=== PATIENT | male | born 1960 | race African-American/Black ===

== ENCOUNTER 2017-06-13 15:01 | Emergency (ER) | payer MEDICAID, OTHER ==
[2017-06-13] VITALS (9 sets, daily range): BP systolic 165–213; BP diastolic 100–155
[~2017-06-13] VITALS: Ht 177.8 cm; Wt 81.6 kg
--- NOTE | 2017-06-13 14:57 | Emergency Room Report ---
History of Present Illness General Chief Complaint: Chest Pain Source: Patient, EMS Present Illness HPI Patient presents with chest pain which began 3 hours ago. Sharp, stabbing and pleuritic 07/04, radiates to back. Paramedics called and patient given aspirin and nitro X3. No significant change with tx. EKG tachy and LAE. Patient was hypertensive. Not admitting to drug use. He states he's had a recent cardiac evaluation and was told his cholesterol is high. Started medication for that. Negative stress test and echo in 2013. When evaluated here, his blood pressure has been high. Today he was with 2 women in his apartment and he had to run down to his car without his clothes on. He started having chest pain when this was happening. No diabetes. + smoke. No family history. No fevers, weakness, headache, cough, URI, NVD, dysuria, joint pain, rashes. Allergies: Coded Allergies: No Known Allergies (Unverified , 09/25/14) Patient History Past Medical History: see triage record, old chart reviewed Social History: Reports: alcohol use, drug use - see tox, smoking Social History Narrative from home Reviewed Nursing Documentation: PMH: Agreed, PSxH: Agreed Nursing Documentation-PMH Hx Cardiac Problems: Yes Hx Hypertension: Yes Review of Systems All Other Systems: negative except mentioned in HPI Physical Exam Vital Signs Date Time Temp Pulse Resp B/P Pulse Ox O2 Delivery O2 Flow Rate FiO2 06/13/17 14:48 98.8 111 16 213/155 100 Room Air Sp02 EP Interpretation: reviewed, normal General Appearance: well appearing, no apparent distress, GCS 15 Head: normocephalic Eyes: bilateral eye PERRL, bilateral eye Scleral Injection ENT: moist mucus membranes Neck: supple Respiratory: other - gynecomastia Cardiovascular #1: regular rate, rhythm Cardiovascular #2: 2+ radial (R), 2+ radial (L) Gastrointestinal: normal inspection, normal bowel sounds, non tender, no mass, non-distended Rectal: other - hemrrhoid versus condyloma Musculoskeletal: back normal, gait/station normal, normal range of motion Neurologic: alert, oriented x3, grossly normal Psychiatric: mood/affect normal Skin: normal inspection, warm/dry Medical Decision Making Diagnostic Impression: Primary Impression: Chest pain Qualified Codes: R07.9 - Chest pain, unspecified Additional Impressions: Hypertension Qualified Codes: I10 - Essential (primary) hypertension Amphetamine abuse Renal insufficiency ER Course Patient presents with chest pain. Differential includes acute myocardial infarction, acute coronary syndrome, costochondritis, anxiety, bronchitis, pneumothorax amongst others. VS against PE. Evaluation EKG, labs and chest x- ray. Patient will be observed on clinical research monitor. He is extremely hypertensive. This will be monitored and treated if needed. EKG with LAE, NSSTTW changes. CXR no cardiopulmonary disease. Labs significant for + amphetamines and blood alcohol with renal insufficiency ( prior creat normal). HTN treated in ED with improvement. Pain also treated with improvement. Discussed with patient need for follow up with his MD with repeated labs and BP determination. Admonished to stop using drugs. Patient stable for outpatient observation and treatment. Laboratory Tests Test 06/13/17 15:05 06/13/17 16:20 White Blood Count 5.4 K/UL (4.8-10.8) Red Blood Count 4.62 M/UL (4.70-6.10) L Hemoglobin 11.3 G/DL (14.2-18.0) L Hematocrit 37.7 % (42.0-52.0) L Mean Corpuscular Volume 82 FL (80-99) Mean Corpuscular Hemoglobin 24.5 PG (27.0-31.0) L Mean Corpuscular Hemoglobin Concent 30.0 G/DL (32.0-36.0) L Red Cell Distribution Width 17.6 % (11.6-14.8) H Platelet Count 385 K/UL (150-450) Mean Platelet Volume 5.7 FL (6.5-10.1) L Neutrophils (%) (Auto) 52.2 % (45.0-75.0) Lymphocytes (%) (Auto) 32.7 % (20.0-45.0) Monocytes (%) (Auto) 10.2 % (1.0-10.0) H Eosinophils (%) (Auto) 2.9 % (0.0-3.0) Basophils (%) (Auto) 2.0 % (0.0-2.0) Prothrombin Time 9.4 SEC (9.30-11.50) Prothrombin Time INR 0.9 (0.9-1.1) PTT 26 SEC (23-33) Sodium Level 143 mEQ/L (135-145) Potassium Level 3.0 mEQ/L (3.4-4.9) L Chloride Level 96 mEQ/L (98-107) L Carbon Dioxide Level 28 mEQ/L (20-30) Anion Gap 19 (5-15) H Blood Urea Nitrogen 19 mg/dL (7-23) Creatinine 1.6 mg/dL (0.7-1.2) H Estimate Glomerular Filtration Rate 54.7 mL/min (>60) Glucose Level 92 mg/dL (74-106) Calcium Level 8.7 mg/dL (8.6-10.2) Total Bilirubin 1.1 mg/dL (0.0-1.2) Direct Bilirubin 0.3 mg/dL (0.1-0.3) Aspartate Amino Transferase (AST) 74 U/L (5-40) H Alanine Aminotransferase (ALT) 35 U/L (3-41) Alkaline Phosphatase 110 U/L (40-129) Total Creatine Kinase 244 U/L (38-174) H Troponin I < 0.30 ng/mL (<=0.30) Pro-B-Type Natriuretic Peptide 817 pg/mL (0-125) H Total Protein 8.2 g/dL (6.6-8.7) Albumin 4.4 g/dL (3.5-5.2) Globulin 3.8 g/dL Albumin/Globulin Ratio 1.1 (1.0-2.7) Serum Alcohol 243 mg/dL Urine Color Pale yellow Urine Appearance Slightly cloudy Urine pH 6 (4.5-8.0) Urine Specific [place] 1.015 (1.005-1.035) Urine Protein 3+ (NEGATIVE) H Urine Glucose (UA) Negative (NEGATIVE) Urine Ketones Negative (NEGATIVE) Urine Occult Blood 2+ (NEGATIVE) H Urine Nitrite Negative (NEGATIVE) Urine Bilirubin Negative (NEGATIVE) Urine Urobilinogen 1 MG/DL (0.0-1.0) H Urine Leukocyte Esterase Negative (NEGATIVE) Urine RBC 5-10 /HPF (0 - 0) H Urine WBC 0-2 /HPF (0 - 0) Urine Squamous Epithelial Cells Occasional /LPF Urine Bacteria Few /HPF (NONE) Urine Opiates Screen Negative (NEGATIVE) Urine Barbiturates Screen Negative (NEGATIVE) Phencyclidine (PCP) Screen Negative (NEGATIVE) Urine Amphetamines Screen Positive (NEGATIVE) H Urine Benzodiazepines Screen Negative (NEGATIVE) Urine Cocaine Screen Negative (NEGATIVE) Urine Marijuana (THC) Screen Positive (NEGATIVE) H EKG Diagnostic Results Rate: tachycardiac ST Segments: no acute changes Rhythm Strip Diag. Results EP Interpretation: yes Rhythm: no PVC's, no ectopy, other - Sinus tachycardia Chest X-Ray Diagnostic Results Chest X-Ray Diagnostic Results : Chest X-Ray Ordered: Yes # of Views/Limited/Complete: 1 View Indication: Chest Pain EP Interpretation: Yes Interpretation: no consolidation, no effusion, no pneumothorax, no acute cardiopulmonary disease Impression: No acute disease Interpreting ER Provider: Electronically signed by Ronald Schwab MD Last Vital Signs Date Time Temp Pulse Resp B/P Pulse Ox O2 Delivery O2 Flow Rate FiO2 06/13/17 20:00 98.8 91 25 165/112 97 Room Air Status: improved Disposition: HOME, SELF-CARE Condition: Improved Scripts Clonidine Hcl* (CATAPRES*) 0.2 Mg Tablet 0.2 MG ORAL Q8HR, #60 TAB Prov: Ronald Schwab M.D. 06/13/17 Ronald Schwab M.D. Jun 13, 2017 14:57
[~2017-06-13 15:01] MED LIST: LISINOPRIL5 MG ORAL; NKM
[2017-06-13 15:25] LABS: EOSINOPHILS % (AUTO) 2.9 % (0.0-3.0); LYMPHOCYTES % (AUTO) 32.7 % (20.0-45.0); MEAN CORPUSCULAR HEMOGLOBIN 24.5 PG (27.0-31.0); MEAN CORPUSCULAR VOLUME 82 FL (80-99); MEAN PLATELET VOLUME 5.7 FL (6.5-10.1); MONOCYTES % (AUTO) 10.2 % (1.0-10.0); NEUTROPHILS % (AUTO) 52.2 % (45.0-75.0); PLATELET COUNT 385 K/UL (150-450); RED BLOOD COUNT 4.62 M/UL (4.70-6.10); RED CELL DISTRIBUTION WIDTH 17.6 % (11.6-14.8); WHITE BLOOD COUNT 5.4 K/UL (4.8-10.8)
[2017-06-13 15:39] LABS: INR 0.9 (0.9-1.1); PROTHROMBIN TIME 9.4 SEC (9.30-11.50)
[2017-06-13 15:52] LABS: ALANINE AMINOTRANSFERASE 35 U/L (3-41); ALBUMIN/GLOBULIN RATIO 1.1 (1.0-2.7); ANION GAP 19 (5-15); ASPARTATE AMINO TRANSFERASE 74 U/L (5-40); CALCIUM 8.7 mg/dL (8.6-10.2); CARBON DIOXIDE 28 mEQ/L (20-30); CHLORIDE 96 mEQ/L (98-107); CREATININE 1.6 mg/dL (0.7-1.2); GLOMERULAR FILTRATION RATE 54.7 mL/min (>60); HEMOLYSIS 2; SODIUM 143 mEQ/L (135-145); TOTAL PROTEIN 8.2 g/dL (6.6-8.7)
[2017-06-13 16:22] LABS: BILIRUBIN,DIRECT 0.3 mg/dL (0.1-0.3)
[2017-06-13 16:24] LABS: TROPONIN I < 0.30 ng/mL (<=0.30)
[2017-06-13 16:38] LABS: APPEARANCE,URINE SLIGHTLY CLOUDY; KETONES,URINE NEGATIVE (NEGATIVE); LEUKOCYTE ESTERASE ,URINE NEGATIVE (NEGATIVE); NITRITE,URINE NEGATIVE (NEGATIVE); PH,URINE 6 (4.5-8.0); PROTEIN,URINE 3+ (NEGATIVE); UROBILINOGEN,URINE 1 MG/DL (0.0-1.0)
[2017-06-13 16:53] LABS: SQUAMOUS EPITHELIAL CELL,UR OCCASIONAL /LPF (NONE/OCC); WBC,URINE 0-2 /HPF (0 - 0)
[2017-06-13 16:54] LABS: BACTERIA,URINE FEW /HPF
[2017-06-13] MEDS: Metoprolol 5mg/5ml Inj IVP SCH ×3 (17:37→17:57)
[2017-06-13] MEDS ORDERED: cloNIDine 0.2mg Tab ORAL ONE (18:30)
[2017-06-13] MEDS ORDERED: CATAPRES0.2 MG ORAL (19:49)
--- NOTE | 2017-06-14 11:36 | Diagnostic Imaging Report ---
Indication: Chest pain Comparison: September 25, 2014 A single view chest radiograph was obtained. Findings: No definite infiltrate or pulmonary vascular congestion identified. The heart is enlarged. The aorta is mildly enlarged consistent with atherosclerotic vascular disease. The bones are unremarkable. Impression: No acute disease
--- NOTE | 2017-06-17 21:23 | Cardiology Report ---
APPROVED REPORT EKG Measurement Heart [id number] 140P61 [id number] Sinus tachycardia Biatrial enlargement Left ventricular hypertrophy Nonspecific T wave abnormality Abnormal ECG
== END 2017-06-13 20:02 | disposition home or self-care (01) ==
LOC: EDBD 15:01 → EMR 15:33
DX: R07.9 Chest pain, unspecified (principal); I10 Essential (primary) hypertension; F15.10 Other stimulant abuse, uncomplicated; N28.9 Disorder of kidney and ureter, unspecified; F17.200 Nicotine dependence, unspecified, uncomplicated
CPT/HCPCS: 36415; 71010; 80053; 80300; 80329; 81003; 82248; 82550; 83880; 84484; 85025; 85610; 85730; 93005; 96374; 96375; 99284; J0360

== ENCOUNTER 2017-06-16 19:03 | Emergency (ER) | payer OTHER ==
[~2017-06-16] VITALS: Ht 180.3 cm; Wt 79.4 kg
[~2017-06-16 19:03] MED LIST changes: +CATAPRES0.2 MG ORAL
[2017-06-16] MEDS ORDERED: LORazepam Inj 2mg/ml 1ml IV ONE (19:15)
--- NOTE | 2017-06-16 19:24 | Emergency Room Report ---
History of Present Illness General Chief Complaint: Seizure Source: Patient, EMS Present Illness HPI Patient's 57-year-old male who presented after increased generalized seizure. The patient reports having a prior seizure disorder. Patient had prior use of alcohol as well as multiple substances. Patient denied any fevers he denies a locations of pain currently patient was noted to have some tongue abrasion. Patient is medications for his blood pressure.Patient cannot recall his prior medications. He states that he takes medication for hypertension. He he reports using multiple substances earlier in the day Allergies: Coded Allergies: No Known Allergies (Unverified , 09/25/14) Patient History Reviewed Nursing Documentation: PMH: Agreed, PSxH: Agreed Nursing Documentation-PMH Hx Hypertension: Yes Hx Cancer: No Hx Gastrointestinal Problems: No History Of Psychiatric Problem: Yes - Substance/alcohol abuse Hx Neurological Problems: No Hx Seizures: Yes Review of Systems All Other Systems: negative except mentioned in HPI Physical Exam Vital Signs Date Time Temp Pulse Resp B/P (MAP) Pulse Ox O2 Delivery O2 Flow Rate FiO2 06/16/17 18:57 98.4 125 22 147/88 98 Room Air Sp02 EP Interpretation: reviewed, normal General Appearance: normal inspection, well appearing, no apparent distress, alert, GCS 15, non-toxic Head: atraumatic ENT: normal ENT inspection, hearing grossly normal, normal voice Neck: normal inspection, full range of motion, supple, no bony tend Respiratory: normal inspection, lungs clear, normal breath sounds, no respiratory distress, no retraction, no wheezing Cardiovascular #1: regular rate, rhythm, no edema Gastrointestinal: normal inspection, normal bowel sounds, non tender, soft, no guarding, no hernia Genitourinary: no CVA tenderness Musculoskeletal: normal inspection, back normal, normal range of motion Neurologic: normal inspection, alert, oriented x3, responsive, geospatial developer III-XII nml as tested, motor strength/tone normal, speech normal Psychiatric: normal inspection, judgement/insight normal, mood/affect normal Skin: normal inspection, normal color, no rash Medical Decision Making Diagnostic Impression: Primary Impression: Epileptic seizure, generalized Additional Impressions: Hypertension Renal insufficiency Polysubstance abuse ER Course Patient presented for seizure. Differential diagnosis included substance abuse, cysticercosis, electrolyte abnormality, mass lesion, or cranial hemorrhage. Because of complexity of patient's case laboratory testing studies were ordered.The patient was given IV Ativan. Laboratory testing was notable for elevation of his BUN/creatinine consistent the patient's previous renal insufficiency. This is likely exacerbated by recent substance use. The patient was noted to have improvement in his mental status. Patient stated he wanted to go home. Patient was advised not to drive a motor vehicle or operate heavy machinery.The patient is advised to follow up with primary care doctor in 1-2 days. Patient is advised to return if any worsening condition or if any changes in status that are concerning. Labs Test 06/16/17 18:20 06/16/17 19:25 Urine Opiates Screen Negative (NEGATIVE) Urine Barbiturates Screen Negative (NEGATIVE) Phencyclidine (PCP) Screen Negative (NEGATIVE) Urine Amphetamines Screen Positive (NEGATIVE) Urine Benzodiazepines Screen Positive (NEGATIVE) Urine Cocaine Screen Negative (NEGATIVE) Urine Marijuana (THC) Screen Positive (NEGATIVE) White Blood Count 11.4 K/UL (4.8-10.8) Red Blood Count 4.80 M/UL (4.70-6.10) Hemoglobin 12.7 G/DL (14.2-18.0) Hematocrit 38.4 % (42.0-52.0) Mean Corpuscular Volume 80 FL (80-99) Mean Corpuscular Hemoglobin 26.4 PG (27.0-31.0) Mean Corpuscular Hemoglobin Concent 33.0 G/DL (32.0-36.0) Red Cell Distribution Width 18.1 % (11.6-14.8) Platelet Count 275 K/UL (150-450) Mean Platelet Volume 6.6 FL (6.5-10.1) Neutrophils (%) (Auto) % (45.0-75.0) Lymphocytes (%) (Auto) % (20.0-45.0) Monocytes (%) (Auto) % (1.0-10.0) Eosinophils (%) (Auto) % (0.0-3.0) Basophils (%) (Auto) % (0.0-2.0) Differential Total Cells Counted 100 Neutrophils % (Manual) 75 % (45-75) Lymphocytes % (Manual) 18 % (20-45) Monocytes % (Manual) 5 % (1-10) Eosinophils % (Manual) 0 % (0-3) Basophils % (Manual) 0 % (0-2) Band Neutrophils 2 % (0-8) Platelet Estimate Adequate Platelet Morphology Normal Hypochromasia 1+ Anisocytosis 1+ Sodium Level 131 mEQ/L (135-145) Potassium Level 3.4 mEQ/L (3.4-4.9) Chloride Level 83 mEQ/L (98-107) Carbon Dioxide Level 27 mEQ/L (20-30) Anion Gap 21 (5-15) Blood Urea Nitrogen 21 mg/dL (7-23) Creatinine 2.1 mg/dL (0.7-1.2) Estimat Glomerular Filtration Rate 40.0 mL/min (>60) Glucose Level 146 mg/dL (74-106) Calcium Level 9.7 mg/dL (8.6-10.2) Total Bilirubin 2.6 mg/dL (0.0-1.2) Direct Bilirubin 0.4 mg/dL (0.1-0.3) Aspartate Amino Transf (AST/SGOT) 52 U/L (5-40) Alanine Aminotransferase (ALT/SGPT) 27 U/L (3-41) Alkaline Phosphatase 93 U/L (40-129) Total Protein 9.1 g/dL (6.6-8.7) Albumin 4.2 g/dL (3.5-5.2) Globulin 4.9 g/dL Albumin/Globulin Ratio 0.8 (1.0-2.7) Phenytoin (Dilantin) Level < 0.8 ug/mL (10-20) EKG Diagnostic Results Rate: tachycardiac Rhythm: NSR ST Segments: no acute changes ASA given to the pt in ED: No Rhythm Strip Diag. Results EP Interpretation: yes Rhythm: NSR, no PVC's, no ectopy Last Vital Signs Date Time Temp Pulse Resp B/P (MAP) Pulse Ox O2 Delivery O2 Flow Rate FiO2 06/16/17 18:57 98.4 125 22 147/88 98 Room Air Status: improved Disposition: HOME, SELF-CARE Condition: Stable KenjiLon Jun 16, 2017 19:24
[2017-06-16 19:37] LABS: MEAN CORPUSCULAR HEMOGLOBIN 26.4 PG (27.0-31.0); MEAN CORPUSCULAR VOLUME 80 FL (80-99); MEAN PLATELET VOLUME 6.6 FL (6.5-10.1); PLATELET COUNT 275 K/UL (150-450); RED CELL DISTRIBUTION WIDTH 18.1 % (11.6-14.8); WHITE BLOOD COUNT 11.4 K/UL (4.8-10.8)
[2017-06-16 19:53] LABS: ALANINE AMINOTRANSFERASE 27 U/L (3-41); ALBUMIN/GLOBULIN RATIO 0.8 (1.0-2.7); ANION GAP 21 (5-15); ASPARTATE AMINO TRANSFERASE 52 U/L (5-40); CALCIUM 9.7 mg/dL (8.6-10.2); CARBON DIOXIDE 27 mEQ/L (20-30); CHLORIDE 83 mEQ/L (98-107); CREATININE 2.1 mg/dL (0.7-1.2); HEMOLYSIS 138; POTASSIUM 3.4 mEQ/L (3.4-4.9); SODIUM 131 mEQ/L (135-145); TOTAL PROTEIN 9.1 g/dL (6.6-8.7)
[2017-06-16 20:14] LABS: BILIRUBIN,DIRECT 0.4 mg/dL (0.1-0.3)
[2017-06-16 20:25] VITALS: BP 162/109
[2017-06-16 21:13] VITALS: BP 167/113
[2017-06-16 21:41] VITALS: BP 184/103
[2017-06-16 21:47] VITALS: BP 184/103
[2017-06-16 21:48] LABS: ANISOCYTOSIS 1+; BAND NEUTROPHILS % (MANUAL) 2 % (0-8); BASOPHILS % (MANUAL) 0 % (0-2); EOSINOPHILS % (MANUAL) 0 % (0-3); HYPOCHROMASIA 1+; LYMPHOCYTES % (MANUAL) 18 % (20-45); NEUTROPHILS % (MANUAL) 75 % (45-75); PLATELET ESTIMATE ADEQUATE; PLATELET MORPHOLOGY NORMAL; TOTAL CELLS COUNTED 100
== END 2017-06-16 21:47 | disposition home or self-care (01) ==
LOC: EDBD 19:03 → EMR 20:33
DX: I10 Essential (primary) hypertension (principal); G40.909 Epilepsy, unspecified, not intractable, without status epilepticus; S00.512A Abrasion of oral cavity, initial encounter; X58.XXXA Exposure to other specified factors, initial encounter; Y92.9 Unspecified place or not applicable
CPT/HCPCS: 36415; 80053; 80185; 80300; 82248; 85007; 85025; 96374; 99284

== ENCOUNTER 2018-03-08 20:56 | Emergency (ER) | payer OTHER ==
[~2018-03-08] VITALS: Ht 175.3 cm; Wt 86.2 kg
[2018-03-08 21:05] VITALS: BP 192/101
--- NOTE | 2018-03-08 21:08 | Emergency Room Report ---
History of Present Illness General Chief Complaint: Chest Pain Source: Patient Present Illness HPI Is a 58-year-old male with a history high blood pressure. Also history of drug abuse. Patient presents with chief complaint of chest pain. His been ongoing for last 3 days. Constant in nature. No radiation. Pain localized epigastric area. Patient described pain is 9 out of 10. Nothing made it better. Nothing made it worse. He called 911 because of continual pain. EMS gave him nitroglycerin and aspirin without any relief. Patient admits to being alcoholic and has been drinking heavily because of his birthday. He also admit to using methamphetamine. Initially he denied it. He is not taking his medication for the last 2 months. Nothing made it better. Nothing made it worse. Allergies: Coded Allergies: No Known Allergies (Unverified , 09/25/14) Patient History Past Medical History: see triage record, old chart reviewed, HTN Past Surgical History: other Pertinent Family History: none Social History: Reports: alcohol use, drug use Immunizations: other Reviewed Nursing Documentation: PMH: Agreed; PSxH: Agreed Nursing Documentation-PMH Past Medical History: No History, Except For Hx Cardiac Problems: Yes Hx Hypertension: Yes Hx Cancer: No Hx Gastrointestinal Problems: No Hx Neurological Problems: No Hx Seizures: Yes Review of Systems Eye: Denies: eye pain, blurred vision ENT: Denies: ear pain, nose congestion, throat swelling Respiratory: Denies: cough, shortness of breath Cardiovascular: Reports: chest pain; Denies: palpitations Gastrointestinal: Denies: abdominal pain, diarrhea, nausea, vomiting Musculoskeletal: Denies: back pain, joint pain Skin: Denies: rash Neurological: Denies: headache, numbness Endocrine: Denies: increased thirst, increased urine Hematologic/Lymphatic: Denies: easy bruising All Other Systems: negative except mentioned in HPI Physical Exam Vital Signs Date Time Temp Pulse Resp B/P (MAP) Pulse Ox O2 Delivery O2 Flow Rate FiO2 03/08/18 20:50 118 16 202/147 97 Room Air vitals with high blood pressure and tachycardia Sp02 EP Interpretation: reviewed, normal General Appearance: well appearing, no apparent distress, alert Head: normocephalic, atraumatic Eyes: bilateral eye PERRL, bilateral eye EOMI ENT: hearing grossly normal, normal pharynx Neck: full range of motion, supple, no meningismus Respiratory: chest non-tender, lungs clear, normal breath sounds Cardiovascular #1: regular rate, rhythm, no murmur Gastrointestinal: normal bowel sounds, non tender, no mass, no organomegaly, no bruit, non-distended Musculoskeletal: back normal, gait/station normal, normal range of motion Psychiatric: mood/affect normal Skin: warm/dry Medical Decision Making Diagnostic Impression: Primary Impression: ACS (acute coronary syndrome) Additional Impressions: Polysubstance abuse Alcohol intoxication Qualified Codes: F10.920 - Alcohol use, unspecified with intoxication, uncomplicated Proteinuria Qualified Codes: R80.9 - Proteinuria, unspecified Cardiomyopathy Qualified Codes: I42.9 - Cardiomyopathy, unspecified Hypertensive urgency ER Course Patient presents with chest pain and uncontrolled hypertension. His BNP is elevated but he show no evidence of fluid overloaded. Most likely a cardiomyopathy from his alcohol and drug abuse. Troponin is intermediate. He received aspirin and nitroglycerin by EMS. I gave beta jennifer here. Blood pressure better controlled with medication. I discussed the case with Dr. Salinas excepted patient for transfer to [facility]. Laboratory Tests Test 03/08/18 21:05 White Blood Count 5.8 K/UL (4.8-10.8) Red Blood Count 4.91 M/UL (4.70-6.10) Hemoglobin 14.9 G/DL (14.2-18.0) Hematocrit 45.6 % (42.0-52.0) Mean Corpuscular Volume 93 FL (80-99) Mean Corpuscular Hemoglobin 30.3 PG (27.0-31.0) Mean Corpuscular Hemoglobin Concent 32.6 G/DL (32.0-36.0) Red Cell Distribution Width 13.6 % (11.6-14.8) Platelet Count 262 K/UL (150-450) Mean Platelet Volume 5.9 FL (6.5-10.1) L Neutrophils (%) (Auto) 65.6 % (45.0-75.0) Lymphocytes (%) (Auto) 24.1 % (20.0-45.0) Monocytes (%) (Auto) 7.2 % (1.0-10.0) Eosinophils (%) (Auto) 0.9 % (0.0-3.0) Basophils (%) (Auto) 2.2 % (0.0-2.0) H Urine Color Yellow Urine Appearance Clear Urine pH 6.5 (4.5-8.0) Urine Specific [place] 1.015 (1.005-1.035) Urine Protein 4+ (NEGATIVE) H Urine Glucose (UA) Negative (NEGATIVE) Urine Ketones 1+ (NEGATIVE) H Urine Occult Blood 4+ (NEGATIVE) H Urine Nitrite Negative (NEGATIVE) Urine Bilirubin Negative (NEGATIVE) Urine Urobilinogen 4 MG/DL (0.0-1.0) H Urine Leukocyte Esterase Negative (NEGATIVE) Urine RBC 5-10 /HPF (0 - 0) H Urine WBC 2-4 /HPF (0 - 0) Urine Squamous Epithelial Cells None /LPF (NONE/OCC) Urine Bacteria Few /HPF (NONE) Sodium Level 141 MMOL/L (136-145) Potassium Level 5.5 MMOL/L (3.5-5.1) H Chloride Level 98 MMOL/L (98-107) Carbon Dioxide Level 28 MMOL/L (21-32) Anion Gap 15 mmol/L (5-15) Blood Urea Nitrogen 21 mg/dL (7-18) H Creatinine 1.4 MG/DL (0.55-1.30) H Estimat Glomerular Filtration Rate > 60 mL/min (>60) Glucose Level 125 MG/DL (74-106) H Calcium Level 8.1 MG/DL (8.5-10.1) L Total Bilirubin 1.6 MG/DL (0.2-1.0) H Direct Bilirubin 0.2 MG/DL (0.0-0.3) Aspartate Amino Transf (AST/SGOT) 129 U/L (15-37) H Alanine Aminotransferase (ALT/SGPT) 80 U/L (12-78) H Alkaline Phosphatase 108 U/L (46-116) Total Creatine Kinase 377 U/L (26-308) H Creatine Kinase MB 3.8 NG/ML (0.0-3.6) H Creatine Kinase MB Relative Index 1.0 Troponin I 0.245 ng/mL (0.000-0.056) Pro-B-Type Natriuretic Peptide 1134 pg/mL (0-125) H Total Protein 9.3 G/DL (6.4-8.2) H Albumin 3.7 G/DL (3.4-5.0) Globulin 5.6 g/dL Albumin/Globulin Ratio 0.7 (1.0-2.7) L Lipase 305 U/L (73-393) Urine Opiates Screen Negative (NEGATIVE) Urine Barbiturates Screen Negative (NEGATIVE) Phencyclidine (PCP) Screen Negative (NEGATIVE) Urine Amphetamines Screen Positive (NEGATIVE) H Urine Benzodiazepines Screen Positive (NEGATIVE) H Urine Cocaine Screen Negative (NEGATIVE) Urine Marijuana (THC) Screen Positive (NEGATIVE) H Lab Results Impression abscess with elevated troponin EKG Diagnostic Results Rate: normal Rhythm: NSR ST Segments: other - NSST changes. LVH ASA given to the pt in ED: No - by EMS Rhythm Strip Diag. Results Rhythm Strip Time: 21:07 EP Interpretation: yes Rate: 100 Rhythm: NSR, no PVC's, no ectopy Chest X-Ray Diagnostic Results Chest X-Ray Diagnostic Results : Chest X-Ray Ordered: Yes # of Views/Limited/Complete: 1 View Indication: Chest Pain EP Interpretation: Yes Interpretation: no consolidation, no effusion, no pneumothorax, other - cardiomegaly Impression: No acute disease - cardiomegaly Electronically Signed by: Vahe Roberts MD Last Vital Signs Date Time Temp Pulse Resp B/P (MAP) Pulse Ox O2 Delivery O2 Flow Rate FiO2 03/08/18 20:50 118 16 202/147 97 Room Air Status: improved Disposition: [facility]FER [facility] Condition: Stable VAHE ROBERTS M.D. March 08, 2018 21:08
[2018-03-08] MEDS ORDERED: Pantoprazole Inj IVP ONE (21:15)
[2018-03-08 21:25] LABS: APPEARANCE,URINE CLEAR; BILIRUBIN, URINE NEGATIVE (NEGATIVE); GLUCOSE, URINE (UA) NEGATIVE (NEGATIVE); KETONES,URINE 1+ (NEGATIVE); LEUKOCYTE ESTERASE ,URINE NEGATIVE (NEGATIVE); NITRITE,URINE NEGATIVE (NEGATIVE); PH,URINE 6.5 (4.5-8.0); PROTEIN,URINE 4+ (NEGATIVE); UROBILINOGEN,URINE 4 MG/DL (0.0-1.0)
[2018-03-08 21:26] LABS: COLOR,URINE YELLOW
[2018-03-08 21:57] LABS: ANION GAP 15 mmol/L (5-15); BLOOD UREA NITROGEN 21 mg/dL (7-18); CALCIUM 8.1 MG/DL (8.5-10.1); CARBON DIOXIDE 28 MMOL/L (21-32); CHLORIDE 98 MMOL/L (98-107); CREATININE 1.4 MG/DL (0.55-1.30); POTASSIUM 5.5 MMOL/L (3.5-5.1); SODIUM 141 MMOL/L (136-145)
[2018-03-08 22:01] LABS: BASOPHILS % (AUTO) 2.2 % (0.0-2.0); EOSINOPHILS % (AUTO) 0.9 % (0.0-3.0); HEMATOCRIT 45.6 % (42.0-52.0); HEMOGLOBIN 14.9 G/DL (14.2-18.0); LYMPHOCYTES % (AUTO) 24.1 % (20.0-45.0); MEAN CORPUSCULAR VOLUME 93 FL (80-99); MONOCYTES % (AUTO) 7.2 % (1.0-10.0); NEUTROPHILS % (AUTO) 65.6 % (45.0-75.0); PLATELET COUNT 262 K/UL (150-450); RED BLOOD COUNT 4.91 M/UL (4.70-6.10); RED CELL DISTRIBUTION WIDTH 13.6 % (11.6-14.8); WHITE BLOOD COUNT 5.8 K/UL (4.8-10.8)
[2018-03-08 22:05] VITALS: BP 187/125
[2018-03-08 22:11] LABS: ALANINE AMINOTRANSFERASE 80 U/L (12-78); ALBUMIN 3.7 G/DL (3.4-5.0); ALBUMIN/GLOBULIN RATIO 0.7 (1.0-2.7); ALKALINE PHOSPHATASE 108 U/L (46-116); ASPARTATE AMINO TRANSFERASE 129 U/L (15-37); BILIRUBIN,TOTAL 1.6 MG/DL (0.2-1.0); CKMB 3.8 NG/ML (0.0-3.6); CREATINE KINASE 377 U/L (26-308)
[2018-03-08 22:12] LABS: BILIRUBIN,DIRECT 0.2 MG/DL (0.0-0.3)
[2018-03-08] MEDS ORDERED: Enoxaparin 80mg Inj SUBQ ONE (22:15)
[2018-03-08] MEDS ORDERED: Metoprolol Tartrate 50mg tab ORAL ONE (22:15)
[2018-03-08] MEDS ORDERED: Metoprolol 5mg/5ml Inj IVP ONE ×2 (22:15→23:00)
[2018-03-08 23:05] VITALS: BP 168/113
[2018-03-09] VITALS: BP 141/88
[2018-03-09 00:46] VITALS: BP 141/88
--- NOTE | 2018-03-09 11:41 | Diagnostic Imaging Report ---
Indication: Chest pain Technique: One view of the chest Comparison: 06/13/2017 Findings: The heart is borderline enlarged. The lungs and pleural spaces are clear. No significant interim change Impression: No acute process
--- NOTE | 2018-03-09 16:33 | Cardiology Report ---
APPROVED REPORT EKG Measurement Heart [id number] 140P69 [id number] Sinus tachycardia Minimal voltage criteria for LVH, may be normal variant Borderline ECG
== END 2018-03-09 00:46 | disposition short-term general hospital (02) ==
LOC: EDBD 20:56 → EMR 21:12
DX: I24.9 Acute ischemic heart disease, unspecified (principal); F19.10 Other psychoactive substance abuse, uncomplicated; F10.129 Alcohol abuse with intoxication, unspecified; I16.0 Hypertensive urgency; R80.9 Proteinuria, unspecified
CPT/HCPCS: 36415; 71045; 80053; 80307; 81003; 82248; 82550; 82553; 83690; 83880; 84484; 85025; 93005; 99285; C9113; J0360; J1650

== ENCOUNTER 2019-04-01 18:53 | Emergency (ER) | payer OTHER ==
[~2019-04-01] VITALS: Ht 175.3 cm; Wt 77.1 kg
[2019-04-01 19:40] VITALS: BP 167/128
--- NOTE | 2019-04-01 19:48 | NUR ---
ED Nurse Note: Patient BIBA from home due to chest pain. Per patient he drank 1000mL of vodka today. AAO x4, patient's HR 123 other VSS at this time. Skin is dry, warm to touch, maria luz continue to monitor.
--- NOTE | 2019-04-01 19:48 | Diagnostic Imaging Report ---
History: PAIN Exam: XR CXR 1 VIEW Comparison: 03/08/2018 FINDINGS: There is again appearance of suggested right-sided pulmonary nodule measuring around 1.2 cm projecting over the level of the anterior third rib. The lungs otherwise appear clear. The cardiac silhouette is again upper limits for technique. The visualized osseous structures appear within limits. IMPRESSION: There is again appearance of suggested right-sided pulmonary nodule measuring around 1.2 cm projecting over the level of the anterior third rib. May further characterized with follow-up nonemergent chest CT. The lungs otherwise appear clear.
[2019-04-01 19:50] LABS: BASOPHILS % (AUTO) 2.3 % (0.0-2.0); EOSINOPHILS % (AUTO) 2.2 % (0.0-3.0); HEMATOCRIT 43.6 % (42.0-52.0); HEMOGLOBIN 14.7 G/DL (14.2-18.0); LYMPHOCYTES % (AUTO) 34.7 % (20.0-45.0); MEAN CORPUSCULAR VOLUME 91 FL (80-99); MONOCYTES % (AUTO) 9.5 % (1.0-10.0); NEUTROPHILS % (AUTO) 51.3 % (45.0-75.0); PLATELET COUNT 214 K/UL (150-450); RED BLOOD COUNT 4.81 M/UL (4.70-6.10); RED CELL DISTRIBUTION WIDTH 12.6 % (11.6-14.8); WHITE BLOOD COUNT 4.7 K/UL (4.8-10.8)
--- NOTE | 2019-04-01 19:51 | NUR ---
ED Nurse Note: Pt went down for CT
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
[2019-04-01 20:10] LABS: ANION GAP 15 mmol/L (5-15); BLOOD UREA NITROGEN 25 mg/dL (7-18); CALCIUM 8.9 MG/DL (8.5-10.1); CARBON DIOXIDE 27 MMOL/L (21-32); CHLORIDE 97 MMOL/L (98-107); CREATININE 1.7 MG/DL (0.55-1.30); POTASSIUM 3.5 MMOL/L (3.5-5.1); SODIUM 139 MMOL/L (136-145)
--- NOTE | 2019-04-01 20:10 | NUR ---
ED Nurse Note: Patient ia back from CT
--- NOTE | 2019-04-01 20:11 | Diagnostic Imaging Report ---
History: TRAUMA Exam: CT HEAD Without Contrast Technique more: CTDI is 70.38 mGy and DLP is 1478 mGy-cm. Technique more: One or more of the following dose reduction techniques were used: automated exposure control, adjustment of the mA and/or kV according to patient size, use of iterative reconstruction technique. Comparison: None available FINDINGS: No intracranial hemorrhage, mass effect or calvarial fracture. The ventricles are within limits and midline. Patchy white matter low attenuation may represent chronic small vessel ischemic change. Visualized paranasal sinuses, mastoids and orbits appear within limits. IMPRESSION: No intracranial hemorrhage, mass effect or calvarial fracture. Patchy white matter low attenuation may represent chronic small vessel ischemic change.
[2019-04-01 20:25] LABS: ALANINE AMINOTRANSFERASE 88 U/L (12-78); ALBUMIN 4.2 G/DL (3.4-5.0); ALBUMIN/GLOBULIN RATIO 0.8 (1.0-2.7); ALKALINE PHOSPHATASE 124 U/L (46-116); ASPARTATE AMINO TRANSFERASE 212 U/L (15-37); BILIRUBIN,TOTAL 1.7 MG/DL (0.2-1.0); CREATINE KINASE 137 U/L (26-308)
--- NOTE | 2019-04-01 20:25 | Diagnostic Imaging Report ---
History: TRAUMA Exam: CT CHEST Without Contrast Technique more: CTDI is 12.13 mGy and DLP is 874 mGy-cm. Technique more: One or more of the following dose reduction techniques were used: automated exposure control, adjustment of the mA and/or kV according to patient size, use of iterative reconstruction technique. Comparison: FINDINGS: Thoracic aorta appears within limits on noncontrast imaging. Coronary calcification noted. No pericardial or pleural effusion. The central airways are patent. Platelike areas of scar atelectasis at the right middle lobe and lingula. No pneumothorax. 1.5 cm noncalcified pulmonary nodule right upper lobe. No fracture identified. IMPRESSION: No evidence of acute traumatic injury on noncontrast imaging. 1.5 cm noncalcified pulmonary nodule right upper lobe. Requires follow- up per Fleischner Society criteria. Exam: CT ABDOMEN + PELVIS Without Contrast Technique more: CTDI is 12.13 mGy and DLP is 874 mGy-cm. Technique more: One or more of the following dose reduction techniques were used: automated exposure control, adjustment of the mA and/or kV according to patient size, use of iterative reconstruction technique. Comparison: FINDINGS: Hepatic steatosis. The gallbladder is distended, clinical correlate. Other abdominal solid organs and abdominal aorta appear within limits on noncontrast imaging. No bowel dilation or free air. No free fluid. No acute fracture identified. IMPRESSION: No evidence of acute traumatic injury on noncontrast imaging. Hepatic steatosis. The gallbladder is distended, clinical correlate.
[2019-04-01 20:28] LABS: BILIRUBIN,DIRECT 0.5 MG/DL (0.0-0.3)
[2019-04-01 21:20] VITALS: BP 175/125
[2019-04-01 21:30] LABS: APPEARANCE,URINE CLEAR; BILIRUBIN, URINE NEGATIVE (NEGATIVE); GLUCOSE, URINE (UA) NEGATIVE (NEGATIVE); KETONES,URINE NEGATIVE (NEGATIVE); LEUKOCYTE ESTERASE ,URINE NEGATIVE (NEGATIVE); NITRITE,URINE NEGATIVE (NEGATIVE); PH,URINE 6 (4.5-8.0); PROTEIN,URINE 3+ (NEGATIVE); UROBILINOGEN,URINE 1 MG/DL (0.0-1.0)
[2019-04-01 21:31] LABS: COLOR,URINE YELLOW
--- NOTE | 2019-04-01 22:17 | NUR ---
ED Nurse Note: Patient' BP 176/115 Kenji Castle notifyed.
[2019-04-01 23:51] VITALS: BP 135/91
[2019-04-02] MEDS ORDERED: LORazepam Inj 2mg/ml 1ml IV ONE
[2019-04-02 00:48] VITALS: BP 143/88
--- NOTE | 2019-04-02 00:54 | NUR ---
ED Nurse Note: Patient was medicated, is in the bed sleeping, AAO x4, no acute disstress noticed.
[2019-04-02 01:51] VITALS: BP 150/80
--- NOTE | 2019-04-02 01:54 | NUR ---
ED Nurse Note: Pt cleared by health care Provider for discharge. DC instructions/prescription was given and explained to pt and verbalized understanding of teachings. All medical deviecs such as ID band removed. Pt is AAO x4,was trans[id number] with all personal belongings.
--- NOTE | 2019-04-04 15:05 | Cardiology Report ---
APPROVED REPORT EKG Measurement Heart [id number] Normal sinus rhythm Possible Left atrial enlargement Prolonged QT Abnormal ECG
== END 2019-04-02 01:56 | disposition short-term general hospital (02) ==
LOC: EDBD 18:53 → EMR 19:15
DX: R91.1 Solitary pulmonary nodule (principal); F10.10 Alcohol abuse, uncomplicated; S00.93XA Contusion of unspecified part of head, initial encounter; R07.9 Chest pain, unspecified; F15.10 Other stimulant abuse, uncomplicated; I10 Essential (primary) hypertension; G40.909 Epilepsy, unspecified, not intractable, without status epilepticus; F17.200 Nicotine dependence, unspecified, uncomplicated
CPT/HCPCS: 36415; 70450; 71045; 71250; 74176; 80053; 80307; 80329; 81003; 82248; 82550; 82553; 83880; 84484; 85025; 93005; 96374; 96375; 99285; J0360; J1940; J2405

== ENCOUNTER 2019-06-05 14:38 | Inpatient (IN) | payer OTHER ==
[~2019-06-05] VITALS: Ht 185.4 cm; Wt 86.6 kg
[2019-06-05] MEDS ORDERED: NITROGLYCERIN2.5 MG PO (14:42)
[2019-06-05] MEDS ORDERED: LISINOPRIL5 MG ORAL (14:42)
[2019-06-05] MEDS ORDERED: HYDROCHLOROTH12.5 M2 ORAL (14:42)
[2019-06-05] MEDS ORDERED: NORVASC2.5 MG ORAL (14:42)
[2019-06-05] MEDS ORDERED: ATORVASTATIN CA10 MG ORAL (14:42)
[2019-06-05] MEDS ORDERED: NAPROXEN250 M1 PO (14:42)
[2019-06-05 14:45] VITALS: BP 195/131
--- NOTE | 2019-06-05 14:45 | NUR ---
ED Nurse Note: pt was brought in by ambulance from home c/o chest pain. pt stated he has having a sharp pain on the chst without radiation to diff body part satrted yesterday, pt stated that he drinks a gallon of vodka a day for a week now, yesterday was the last time he drank vodka, pt stated that he is not been taking his hypertension medicine since 1 week, pt aox4, able to answer questions. ermd on bedside. with new order, pt noted with iv g 20 on the right forearm. blood drawn and was sent to lab. pt unable to give urine for now. ermd made aware. will continue to monitor
[2019-06-05] MEDS ORDERED: LORazepam Inj 2mg/ml 1ml IV ONE (15:00)
[2019-06-05] MEDS ORDERED: Thiamine 100mg tab ORAL ONE (15:00)
[2019-06-05] MEDS ORDERED: Aspirin Baby 81mg ORAL ONE (15:00)
--- NOTE | 2019-06-05 15:02 | Emergency Room Report ---
History of Present Illness General Chief Complaint: Chest Pain Source: EMS Present Illness HPI Disclaimer: Please note that this report is being documented using DRAGON technology. This can lead to erroneous entry secondary to incorrect interpretation by the dictating instrument. HPI: 59-year-old male with a history of polysubstance abuse including cocaine, amphetamines, chronic alcoholic (1 gallon of vodka daily), CHF, CAD status post stent presents for evaluation of chest pain for 1 day. He reports a sharp stabbing left-sided chest pain that does not radiate, not associated with shortness of breath. He began yesterday morning while at rest watching TV. No changes in intensity with exertion or with rest. He notes diaphoresis, tachycardia. He normally drinks 1 gallon of vodka daily but did not drink any today. He states he has had alcohol withdrawal seizures in the past. He has been without his antihypertensive medications for 1 week. Does not know what medications he is taking. He states he was recently taken for an angiogram 3 weeks ago at [facility] but does not know if he had a new stent placed. He does state that he has a stent. Has not been compliant with any of his medications. He denies fevers, chills, abdominal pain, diarrhea. One episode of emesis this morning. Denies rash, skin breakdown, dysuria, hematuria, hematochezia or melena. PMH: Alcohol withdrawal seizures, polysubstance abuse, CAD, CHF PSH: Angiogram Allergies: None Social Hx: Chronic alcohol use, tobacco use, polysubstance use Allergies: Coded Allergies: No Known Allergies (Unverified , 09/25/14) Nursing Documentation-PMH Hx Cardiac Problems: No - Stents x 3 Hx Hypertension: Yes Hx Cancer: No Hx Gastrointestinal Problems: No Hx Neurological Problems: No Hx Seizures: Yes Review of Systems All Other Systems: negative except mentioned in HPI Physical Exam Vital Signs Date Time Temp Pulse Resp B/P (MAP) Pulse Ox O2 Delivery O2 Flow Rate FiO2 06/05/19 14:35 98.2 132 20 165/112 (129) 99 Room Air General: Awake and alert, appears uncomfortable HEENT: NC/AT. EOMI. anicteric sclera. Dry mucous membranes Neck: Supple, trachea midline Chest Wall: No deformity. Significant tenderness over the chest wall particularly the left side and over the sternum Cardiovascular: Tachycardic. S1 and S2 normal. No murmur appreciated Resp: Normal work of breathing. No cough, wheezing or crackles appreciated Abdomen: Abdomen is soft, nondistended. Nontender Skin: Intact. No abrasions, laceration or rash over the exposed skin MSK: Normal tone and bulk. Moving all extremities. No obvious deformity. No lower extremity edema Neuro: Awake and alert. Mentating appropriately. Poor historian Medical Decision Making Diagnostic Impression: Primary Impression: Chest pain Additional Impressions: Polysubstance abuse Hypertensive urgency Alcohol withdrawal Elevated lipase ER Course 59-year-old male with history of polysubstance abuse, regular alcohol use who has not had alcohol today presents tachycardic complaining of 1 day chest pain, one episode of emesis earlier. Differential is broad and includes but is not limited to ACS, unstable angina, polysubstance use, alcohol withdrawal, muscular skeletal chest pain, pneumonia, bronchitis, costochondritis, pancreatitis. We will start broad work-up including cardiac labs, drug screens. We will give IV fluid bolus, benzodiazepines for suspected withdrawal symptoms. EKG chest x-ray are pending. Laboratory Tests Test 06/05/19 14:58 06/05/19 16:21 06/05/19 16:30 White Blood Count 9.5 K/UL (4.8-10.8) Red Blood Count 4.40 M/UL (4.70-6.10) L Hemoglobin 14.2 G/DL (14.2-18.0) Hematocrit 40.6 % (42.0-52.0) L Mean Corpuscular Volume 92 FL (80-99) Mean Corpuscular Hemoglobin 32.2 PG (27.0-31.0) H Mean Corpuscular Hemoglobin Concent 34.9 G/DL (32.0-36.0) Red Cell Distribution Width 12.6 % (11.6-14.8) Platelet Count 334 K/UL (150-450) Mean Platelet Volume 5.1 FL (6.5-10.1) L Neutrophils (%) (Auto) 84.1 % (45.0-75.0) H Lymphocytes (%) (Auto) 10.3 % (20.0-45.0) L Monocytes (%) (Auto) 5.0 % (1.0-10.0) Eosinophils (%) (Auto) 0.0 % (0.0-3.0) Basophils (%) (Auto) 0.6 % (0.0-2.0) Prothrombin Time 9.8 SEC (9.30-11.50) Prothromb Time International Ratio 0.9 (0.9-1.1) Activated Partial Thromboplast Time 27 SEC (23-33) Sodium Level 143 MMOL/L (136-145) Potassium Level 4.0 MMOL/L (3.5-5.1) Chloride Level 99 MMOL/L (98-107) Carbon Dioxide Level 21 MMOL/L (21-32) Anion Gap 23 mmol/L (5-15) H Blood Urea Nitrogen 39 mg/dL (7-18) H Creatinine 1.7 MG/DL (0.55-1.30) H Estimat Glomerular Filtration Rate 50.7 mL/min (>60) Glucose Level 117 MG/DL (74-106) H Lactic Acid Level 3.20 mmol/L (0.4-2.0) H 2.60 mmol/L (0.66-2.22) H Calcium Level 9.1 MG/DL (8.5-10.1) Phosphorus Level 4.3 MG/DL (2.5-4.9) Magnesium Level 1.2 MG/DL (1.8-2.4) L Total Bilirubin 2.5 MG/DL (0.2-1.0) H Direct Bilirubin 0.4 MG/DL (0.0-0.3) H Aspartate Amino Transf (AST/SGOT) 36 U/L (15-37) Alanine Aminotransferase (ALT/SGPT) 26 U/L (12-78) Alkaline Phosphatase 100 U/L (46-116) Total Creatine Kinase 166 U/L (26-308) Creatine Kinase MB 2.4 NG/ML (0.0-3.6) Creatine Kinase MB Relative Index 1.4 Troponin I 0.012 ng/mL (0.000-0.056) Pro-B-Type Natriuretic Peptide 788 pg/mL (0-125) H Total Protein 8.9 G/DL (6.4-8.2) H Albumin 4.3 G/DL (3.4-5.0) Globulin 4.6 g/dL Albumin/Globulin Ratio 0.9 (1.0-2.7) L Lipase > 2000 U/L (73-393) H Salicylates Level < 2.0 ug/mL (2.8-20) L Acetaminophen Level < 2 MCG/ML (10-30) L Serum Alcohol 7 mg/dL Urine Color Pale yellow Urine Appearance Clear Urine pH 5 (4.5-8.0) Urine Specific [place] 1.015 (1.005-1.035) Urine Protein 3+ (NEGATIVE) H Urine Glucose (UA) Negative (NEGATIVE) Urine Ketones 3+ (NEGATIVE) H Urine Blood 1+ (NEGATIVE) H Urine Nitrite Negative (NEGATIVE) Urine Bilirubin Negative (NEGATIVE) Urine Urobilinogen Normal MG/DL (0.0-1.0) Urine Leukocyte Esterase Negative (NEGATIVE) Urine RBC 0-2 /HPF (0 - 0) H Urine WBC 0-2 /HPF (0 - 0) Urine Squamous Epithelial Cells None /LPF (NONE/OCC) Urine Bacteria Few /HPF (NONE) Urine Opiates Screen Negative (NEGATIVE) Urine Barbiturates Screen Negative (NEGATIVE) Phencyclidine (PCP) Screen Negative (NEGATIVE) Urine Amphetamines Screen Negative (NEGATIVE) Urine Benzodiazepines Screen Negative (NEGATIVE) Urine Cocaine Screen Negative (NEGATIVE) Urine Marijuana (THC) Screen Negative (NEGATIVE) EKG Diagnostic Results EKG Time: 15:25 Rhythm: NSR ST Segments: no acute changes Other Impression Borderline sinus tachycardia, prolonged QTC at 5 2 1 ms, normal axis, no acute ischemic changes Rhythm Strip Diag. Results Rhythm Strip Time: 15:25 EP Interpretation: yes Rate: 90s Rhythm: NSR Chest X-Ray Diagnostic Results Chest X-Ray Diagnostic Results : # of Views/Limited/Complete: 1 View Indication: Chest Pain EP Interpretation: Yes Interpretation: no consolidation, no effusion, no pneumothorax, other - Pulmonary nodule on the right side Impression: Other - Right pulmonary nodule Electronically Signed by: Electronically signed by Dr. Baljinder Morin Reevaluation Time: 17:55 Last Vital Signs Date Time Temp Pulse Resp B/P (MAP) Pulse Ox O2 Delivery O2 Flow Rate FiO2 06/05/19 14:35 98.2 132 20 165/112 (129) 99 Room Air Reevaluation Impression Labs show a normal white count and normal hemoglobin of 14.2. Chemistry shows elevated lactic acid at 3.2 which is downtrending after receiving IV fluids. His lipase is elevated greater than 2000, creatinine is at 1.7 which is the patient's baseline based on previous admissions. BNP slightly elevated at 788 but no evidence of pulmonary edema on chest x-ray. His troponin is unremarkable. Will replete magnesium which is 1.2. The patient was tachycardic and hypertensive urgency with systolic blood pressures in the 200s. He is improving after hydralazine and labetalol. He will be admitted to the stepdown unit for further management of alcohol withdrawal, hypertensive urgency and other laboratory anomalies. Disposition: ADMITTED INPATIENT Condition: Serious Baljinder Morin MD Jun 05, 2019 15:02
--- NOTE | 2019-06-05 15:20 | NUR ---
ED Nurse Note: pt medicated as ordered, pt able to tolerate po meds.
[2019-06-05 15:30] VITALS: BP 207/131
--- NOTE | 2019-06-05 15:40 | NUR ---
ED Nurse Note: rick made aware of the pt bp, bp 217/126 and ordered hyrdalazine iv and carried out. will continue to monitor.
[2019-06-05 15:44] LABS: BASOPHILS % (AUTO) 0.6 % (0.0-2.0); HEMATOCRIT 40.6 % (42.0-52.0); HEMOGLOBIN 14.2 G/DL (14.2-18.0); LYMPHOCYTES % (AUTO) 10.3 % (20.0-45.0); MEAN CORPUSCULAR VOLUME 92 FL (80-99); NEUTROPHILS % (AUTO) 84.1 % (45.0-75.0); PLATELET COUNT 334 K/UL (150-450); RED CELL DISTRIBUTION WIDTH 12.6 % (11.6-14.8); WHITE BLOOD COUNT 9.5 K/UL (4.8-10.8)
[2019-06-05 15:49] LABS: INR 0.9 (0.9-1.1)
[2019-06-05 15:55] LABS: ANION GAP 23 mmol/L (5-15); BLOOD UREA NITROGEN 39 mg/dL (7-18); CALCIUM 9.1 MG/DL (8.5-10.1); CARBON DIOXIDE 21 MMOL/L (21-32); CHLORIDE 99 MMOL/L (98-107); CREATININE 1.7 MG/DL (0.55-1.30); SODIUM 143 MMOL/L (136-145)
--- NOTE | 2019-06-05 15:55 | Diagnostic Imaging Report ---
Indication: Chest pain Comparison: CT chest and x-ray 04/01/2019, x-ray 01/02/2014 A single view chest radiograph was obtained. Findings: There is a nodular focus in the right midlung which appears unchanged radiographically from 01/02/2014 and was recently seen on CT. This is likely benign given stability over 5 years. Suggest follow-up CT in one year. The lungs are clear otherwise. Heart size is normal. The aorta is mildly ectatic. Bones are unremarkable. IMPRESSION: No acute disease. Incidental right pulmonary nodule. Suggest follow-up examination in one year
[2019-06-05 16:00] LABS: PHOSPHORUS 4.3 MG/DL (2.5-4.9)
[2019-06-05 16:09] LABS: ALANINE AMINOTRANSFERASE 26 U/L (12-78); ALBUMIN 4.3 G/DL (3.4-5.0); ALBUMIN/GLOBULIN RATIO 0.9 (1.0-2.7); ALKALINE PHOSPHATASE 100 U/L (46-116); ASPARTATE AMINO TRANSFERASE 36 U/L (15-37); BILIRUBIN,DIRECT 0.4 MG/DL (0.0-0.3); BILIRUBIN,TOTAL 2.5 MG/DL (0.2-1.0); CKMB 2.4 NG/ML (0.0-3.6); CREATINE KINASE 166 U/L (26-308)
[2019-06-05] MEDS ORDERED: Labetalol 5mg/ml 20ml vial IV ONE ×2 (16:15→17:15)
[2019-06-05 16:35] VITALS: BP 189/115
--- NOTE | 2019-06-05 16:35 | NUR ---
ED Nurse Note: ERMD ORDERED VALIUM PO AND WAS GIVEN, PT ABLE TO GIVE URINE SAMPLE AND WAS SENT TO LAB. PT BP 189/115, HR 91
[2019-06-05 16:46] LABS: APPEARANCE,URINE CLEAR; BILIRUBIN, URINE NEGATIVE (NEGATIVE); COLOR,URINE PALE YELLOW; GLUCOSE, URINE (UA) NEGATIVE (NEGATIVE); KETONES,URINE 3+ (NEGATIVE); LEUKOCYTE ESTERASE ,URINE NEGATIVE (NEGATIVE); NITRITE,URINE NEGATIVE (NEGATIVE); PH,URINE 5 (4.5-8.0); PROTEIN,URINE 3+ (NEGATIVE); UROBILINOGEN,URINE NORMAL MG/DL (0.0-1.0)
[2019-06-05] MEDS ORDERED: Nitroglycerin Subl 0.4mg tab SL PRN (17:45)
[2019-06-05 18:00] VITALS: BP 182/108
[2019-06-05] MEDS ORDERED: Thiamine 100mg tab ORAL SCH (18:00)
--- NOTE | 2019-06-05 18:02 | NUR ---
ED Nurse Note: attempted to call to give report to [facility] nurse but recieving rn is giving meds at moment.
--- NOTE | 2019-06-05 18:10 | NUR ---
ED Nurse Note: pt is admitted to the hospital, report given to freddy peters.
--- NOTE | 2019-06-05 18:15 | NUR ---
NURSE NOTES: Received telephone report from Joey WILLIAMSON from ER.
--- NOTE | 2019-06-05 18:42 | NUR ---
ED Nurse Note: pt was tranfered to [facility] with stable vs and with all belongings endorsed to freddy peters.
[2019-06-05] MEDS: D5NS 1,000 ML IV SCH (18:43)
--- NOTE | 2019-06-05 18:55 | NUR ---
NURSE NOTES: 1855 pt. on the unit.
--- NOTE | 2019-06-05 18:56 | Cardiac Electrophysiology PN ---
Subjective Subjective Seen in ER and [facility] ER [id number] Objective Last 24 Hour Vital Signs Date Time Temp Pulse Resp B/P (MAP) Pulse Ox O2 Delivery O2 Flow Rate FiO2 06/05/19 18:00 88 18 182/108 98 Room Air 06/05/19 17:31 110 185/118 06/05/19 16:35 91 18 189/115 97 Room Air 06/05/19 15:48 217/126 06/05/19 15:30 98.2 117 18 207/131 98 Room Air 06/05/19 14:45 132 20 Room Air 06/05/19 14:45 98.2 132 20 195/131 99 Room Air 06/05/19 14:35 98.2 132 20 165/112 (129) 99 Room Air Laboratory Tests Test 06/05/19 14:58 06/05/19 16:21 06/05/19 16:30 White Blood Count 9.5 K/UL (4.8-10.8) Red Blood Count 4.40 M/UL (4.70-6.10) L Hemoglobin 14.2 G/DL (14.2-18.0) Hematocrit 40.6 % (42.0-52.0) L Mean Corpuscular Volume 92 FL (80-99) Mean Corpuscular Hemoglobin 32.2 PG (27.0-31.0) H Mean Corpuscular Hemoglobin Concent 34.9 G/DL (32.0-36.0) Red Cell Distribution Width 12.6 % (11.6-14.8) Platelet Count 334 K/UL (150-450) Mean Platelet Volume 5.1 FL (6.5-10.1) L Neutrophils (%) (Auto) 84.1 % (45.0-75.0) H Lymphocytes (%) (Auto) 10.3 % (20.0-45.0) L Monocytes (%) (Auto) 5.0 % (1.0-10.0) Eosinophils (%) (Auto) 0.0 % (0.0-3.0) Basophils (%) (Auto) 0.6 % (0.0-2.0) Prothrombin Time 9.8 SEC (9.30-11.50) Prothromb Time International Ratio 0.9 (0.9-1.1) Activated Partial Thromboplast Time 27 SEC (23-33) Sodium Level 143 MMOL/L (136-145) Potassium Level 4.0 MMOL/L (3.5-5.1) Chloride Level 99 MMOL/L (98-107) Carbon Dioxide Level 21 MMOL/L (21-32) Anion Gap 23 mmol/L (5-15) H Blood Urea Nitrogen 39 mg/dL (7-18) H Creatinine 1.7 MG/DL (0.55-1.30) H Estimat Glomerular Filtration Rate 50.7 mL/min (>60) Glucose Level 117 MG/DL (74-106) H Lactic Acid Level 3.20 mmol/L (0.4-2.0) H 2.60 mmol/L (0.66-2.22) H Calcium Level 9.1 MG/DL (8.5-10.1) Phosphorus Level 4.3 MG/DL (2.5-4.9) Magnesium Level 1.2 MG/DL (1.8-2.4) L Total Bilirubin 2.5 MG/DL (0.2-1.0) H Direct Bilirubin 0.4 MG/DL (0.0-0.3) H Aspartate Amino Transf (AST/SGOT) 36 U/L (15-37) Alanine Aminotransferase (ALT/SGPT) 26 U/L (12-78) Alkaline Phosphatase 100 U/L (46-116) Total Creatine Kinase 166 U/L (26-308) Creatine Kinase MB 2.4 NG/ML (0.0-3.6) Creatine Kinase MB Relative Index 1.4 Troponin I 0.012 ng/mL (0.000-0.056) Pro-B-Type Natriuretic Peptide 788 pg/mL (0-125) H Total Protein 8.9 G/DL (6.4-8.2) H Albumin 4.3 G/DL (3.4-5.0) Globulin 4.6 g/dL Albumin/Globulin Ratio 0.9 (1.0-2.7) L Lipase > 2000 U/L (73-393) H Salicylates Level < 2.0 ug/mL (2.8-20) L Acetaminophen Level < 2 MCG/ML (10-30) L Serum Alcohol 7 mg/dL Urine Color Pale yellow Urine Appearance Clear Urine pH 5 (4.5-8.0) Urine Specific [place] 1.015 (1.005-1.035) Urine Protein 3+ (NEGATIVE) H Urine Glucose (UA) Negative (NEGATIVE) Urine Ketones 3+ (NEGATIVE) H Urine Blood 1+ (NEGATIVE) H Urine Nitrite Negative (NEGATIVE) Urine Bilirubin Negative (NEGATIVE) Urine Urobilinogen Normal MG/DL (0.0-1.0) Urine Leukocyte Esterase Negative (NEGATIVE) Urine RBC 0-2 /HPF (0 - 0) H Urine WBC 0-2 /HPF (0 - 0) Urine Squamous Epithelial Cells None /LPF (NONE/OCC) Urine Bacteria Few /HPF (NONE) Urine Opiates Screen Negative (NEGATIVE) Urine Barbiturates Screen Negative (NEGATIVE) Phencyclidine (PCP) Screen Negative (NEGATIVE) Urine Amphetamines Screen Negative (NEGATIVE) Urine Benzodiazepines Screen Negative (NEGATIVE) Urine Cocaine Screen Negative (NEGATIVE) Urine Marijuana (THC) Screen Negative (NEGATIVE) Pillo Huggins MD Jun 05, 2019 18:56
[2019-06-05] MEDS ORDERED: cloNIDine 0.2mg Tab ORAL PRN (19:00)
--- NOTE | 2019-06-05 19:12 | NUR ---
NURSE NOTES: Report received from Aaliyah RN MAURY. PT is in stable condition.
--- NOTE | 2019-06-05 19:37 | NUR ---
HAND-OFF: Report given to Benjy Gasca RN. Pt. remain stable.
--- NOTE | 2019-06-05 19:49 | NUR ---
NURSE NOTES: Spoke with Roderick Pharmacist, i informed him that for what ever reason, 1800 (time) Meds were not given. Pharmacist Roderick stated the reason is due to the fact Pt came late from ER. Pharmacist Roderick stated that it is ok to give the medications late due to the fact pt arrived late from ER. additionally, Pharmacist DC the Thiamine medication (1800 time) and Folic acid (1800 time) due to the fact pt already received medications in ER.
[2019-06-05 20:00] VITALS: BP 192/103
--- NOTE | 2019-06-05 20:05 | NUR ---
NURSE NOTES: Spoke with Pharmacist Roderick, told him that there is a total of 2GM Mag (1800 time) to give. Ronnie Vaughn stated that it is ok to give Both (total 2GM Mag) mag IV. Addendum: 06/05/19 at 2015 by NESSA CARIAS RN NURSE NOTES: Spoke with Ronnie Vaughn, told him that there is a total of 3GM Mag (1800 time) to give. Ronnie Vaughn stated that it is ok to give (total 3GM Mag) mag IV.
--- NOTE | 2019-06-05 20:22 | NUR ---
NURSE NOTES: Spoke with MD BRENNAN. informed him of Mag level 1.2 and confusion with ER order for mag. MD Brennan stated he will hold his 1 GM order and we are going to give 2 GM total (carry out ER order.) Addendum: 06/05/19 at 2303 by NESSA CARIAS RN NURSE NOTES: Spoke with MD BRENNAN. informed him of Mag level 1.2 and confusion with ER order for mag. MD Milner stated he will hold his 1 GM order and we are going to give 2 GM total (carry out ER order.)
[2019-06-05] MEDS: HydrALAZINE 50mg tab ORAL SCH (21:59)
--- NOTE | 2019-06-05 23:00 | History and Physical Report ---
DATE OF ADMISSION: 06/05/2019 REASON FOR ADMISSION: 1. Dehydration. 2. Alcohol withdrawal. 3. Chest pain. HISTORY OF PRESENT ILLNESS: The patient is a 59-year-old gentleman with polysubstance abuse which includes, but not exclusive amphetamines and chronic alcohol. Drinks approximately 1 gallon of vodka a day. Also has underlying CAD and CHF. The patient stated he had been drinking quite a bit and stopped 3 days ago. He has not been taking any of his medications. He denies any current abdominal pain, nausea, vomiting, or diarrhea. But says that he started to feel ill and felt his heart rate go up since he has stopped drinking approximately 3 days ago. He says he recently had a heart catheterization 3 weeks ago at [facility], but does not know the results or if he had a stent placed. PAST MEDICAL HISTORY: 1. Alcohol withdrawal. 2. Seizures. 3. Polysubstance abuse. 4. CAD. 5. CHF. PAST SURGICAL HISTORY: Heart catheterization/angiogram. ALLERGIES: No known drug allergies. SOCIAL HISTORY: Positive for chronic alcohol use, tobacco use, and polysubstance abuse. FAMILY HISTORY: Positive for hypertension. REVIEW OF SYSTEMS: NEUROLOGIC: The patient denies headache, change in vision, syncope, presyncopal episodes. CARDIOVASCULAR: He was having chest pressure and pain. No palpitations. PULMONARY: No difficulty breathing, productive cough, or sputum. GASTROINTESTINAL/GENITOURINARY: No change in urine or bowel habits. No nausea, vomiting, diarrhea. ENDOCRINOLOGY: No night sweats, fevers, chills. MUSCULOSKELETAL: The patient feeling weak, tired, fatigued. LABORATORY DATA: Labs dated 06/05/2019 white cell count 9.5, hemoglobin 14.2, platelet count 334. Sodium 143, potassium 4, creatinine 1.7, albumin 4.3. Total bilirubin 2.5, direct 0.4. Lipase level greater than 2000. Magnesium 1.2, phosphorus 4.3. Lactic level 2.6. PHYSICAL EXAMINATION: VITAL SIGNS: Blood pressure 185/115, respiratory rate 18, pulse 88, temperature 98.0. GENERAL: The patient awake, alert, not otherwise in distress. HEENT: Extraocular muscles intact. No lymphadenopathy noted. Oropharyngeal mucosa is clear and dry. CARDIOVASCULAR: S1, S2. Tachycardic. PULMONARY: Clear to auscultation bilaterally. No rales, rhonchi, or wheezes. ABDOMEN: Nondistended, nontender. Fair bowel sounds. EXTREMITIES: No edema noted. ASSESSMENT AND PLAN: 1. Acute coronary syndrome, chest pain. At this time, serial troponins have been ordered. The patient does have a recent history of heart catheterization angiogram. Cardiology, Dr. Huggins has been asked to evaluate the patient and make further recommendations. 2. Alcohol withdrawal. To avoid Wernicke-Korsakoff syndrome, we have initiated thiamine and folate. We will aggressively hydrate the patient and monitor his lipase level. We will start the patient on clear liquid diet. GI to evaluate. 3. Hypertensive urgency with elevated blood pressure. We will continue Norvasc. Add Coreg with p.r.n. hydralazine. We will try to reduce his blood pressure slowly over the next 24 hours of approximately 25%. 4. Pancreatitis. Lipase greater than 2000. Continue aggressive hydration just with clear liquids. The patient currently having no abdominal pain and GI to evaluate. 5. GI prophylaxis with famotidine. 6. DVT prophylaxis with SCDs. Bry Sultana MD DR: BERTIN JOB#: [id number] CC: TEVIN
--- NOTE | 2019-06-05 23:09 | NUR ---
NURSE NOTES: called IT and reported that the medication Magnesium 1GM IVPB is not able to be pulled out or override in Pyxis. Even charge coordinator Benjy Saenz tried to remove medication and could not. a total of 2GM IVPB was suppose to be given, 1GM IVPB was able to be pulled out earlier, but we are not able to pull out the 2nd 1GM IVPB Mag out of Pyxis. Spoke with LEONARD from IT to inform him of this. awaiting a call back to pull out 1GM IVPB Mag in pyxis to give a total of 2GM Mag IVPB.
--- NOTE | 2019-06-05 23:21 | NUR ---
NURSE NOTES: Called [facility] and informed Ronel Pharmacist that i was not able to pull the 2nd bag of mag 1GM IVP to give a total of 2GM. she stated that the 2nd bag Mag timed out. Ronel Pharmacist placed another 1 bag IV 1GM Mag to give. I was cancel the continuing order of 2 bag IV mag (1/2 bags given).
--- NOTE | 2019-06-05 23:31 | NUR ---
NURSE NOTES: pulled out second bag of MAG 1GM IVPB from Ronel Pharmacist order. i canceled her order and put non admin (Duplicate entry 9591 06/05) and scanned the med under the 1800 total 2 bag 2GM IVPB Mag. total of 2 grams have been given under MD Sultana order.
[2019-06-06] VITALS: BP 165/109
--- NOTE | 2019-06-06 00:15 | Consultation ---
DATE OF CONSULTATION: 06/05/2019 CARDIOLOGY CONSULTATION CONSULTING PHYSICIAN: Pillo Huggins M.D. REFERRING PHYSICIAN: Bry Sultana M.D. REASON FOR CONSULTATION: Chest pain. HISTORY OF PRESENT ILLNESS: The patient is a 59-year-old gentleman with history of hypertension, congestive heart failure, coronary artery disease, and history of prior stent placement about couple of years ago at [facility], as well as history of polysubstance abuse with cocaine and amphetamine as well as heavy alcohol use of 1 gallon of vodka daily, presented to the emergency room complaining of chest pain of one-day duration. The pain was stabbing left-sided chest pain. It did not have any specific radiation. It happened while the patient was at rest watching TV with no change in intensity with exertion. He normally drinks about a gallon of vodka a day. However, he did not drink that day. He said that he also had alcohol withdrawal seizures in the past. The patient also has been without any of these medication for about a week and does not remember what medication he is taking. He states that he also had an angiogram 3 weeks ago at [facility] in [place], but he is not sure if he had a stent. In the emergency room, the patient's blood pressure was more than 200 that gradually improved with labetalol. REVIEW OF SYSTEMS: Review of systems was negative other than what is mentioned in the history of present illness. PAST MEDICAL HISTORY: As mentioned above. FAMILY HISTORY: Noncontributory. SOCIAL HISTORY: He actively drinks alcohol heavily as well as uses cocaine and meth. PHYSICAL EXAMINATION: VITAL SIGNS: Show blood pressure was 217/126, currently 182/108, pulse is 88, and respirations 18. HEAD AND NECK: Shows no JVD. LUNGS: Decreased breath sounds. CARDIOVASCULAR: Shows regular S1 and S2 with no gallop. ABDOMEN: Soft. EXTREMITIES: No pitting edema. LABORATORY AND DIAGNOSTIC DATA: His labs show white count of 9.5, hemoglobin of 14.2, hematocrit of 40, and platelet count is 334,000. Sodium is 142, potassium is 4.0, BUN of 39, and creatinine 1.7. His troponin is 0.012. Lipase is more than 2000. Lactic acid is 3.2. ASSESSMENT AND PLAN: 1. Chest pain. Troponin is negative. EKG has inferior ischemia. This is likely the effect of cocaine and polysubstance abuse. Avoid beta-jennifer in this case of active cocaine. We will keep him on Norvasc 10 mg daily and add hydralazine to his medical regimen. We will try to get the previous cath report from [facility] is that he has prior. 2. Accelerated hypertension. Again, on Norvasc 10 mg daily. We will start him on hydralazine 50 mg every 8 hours. 3. History of heavy alcohol use. On thiamine and folate. 4. History of cocaine and meth use. His urine toxicology is positive for amphetamine as well as marijuana. 5. Pancreatitis. Lipase is more than 2000. Further evaluation by GI. Thank you very much for allowing me to participate in the care of this patient. Please do not hesitate to contact me for any questions regarding my evaluation. Pillo Huggins M.D. DR: ROYCE JOB#: [id number] CC:
[2019-06-06] MEDS ORDERED: LORazepam Inj 2mg/ml 1ml IV PRN (03:45)
[2019-06-06 04:00] VITALS: BP 159/105
[2019-06-06] MEDS: D5NS 1,000 ML IV SCH ×2 (04:01→15:02)
[2019-06-06 04:28] LABS: BASOPHILS % (AUTO) 0.9 % (0.0-2.0); EOSINOPHILS % (AUTO) 0.8 % (0.0-3.0); HEMATOCRIT 45.5 % (42.0-52.0); HEMOGLOBIN 14.7 G/DL (14.2-18.0); LYMPHOCYTES % (AUTO) 11.2 % (20.0-45.0); MEAN CORPUSCULAR VOLUME 97 FL (80-99); MONOCYTES % (AUTO) 8.2 % (1.0-10.0); NEUTROPHILS % (AUTO) 78.9 % (45.0-75.0); PLATELET COUNT 298 K/UL (150-450); RED BLOOD COUNT 4.69 M/UL (4.70-6.10); RED CELL DISTRIBUTION WIDTH 13.3 % (11.6-14.8)
[2019-06-06 04:45] LABS: CHOLESTEROL 216 MG/DL (< 200); HDL CHOLESTEROL 130 MG/DL (40-60); PHOSPHORUS 1.9 MG/DL (2.5-4.9); TRIGLYCERIDES 154 MG/DL (30-150)
[2019-06-06 04:58] LABS: ANION GAP 11 mmol/L (5-15); BLOOD UREA NITROGEN 31 mg/dL (7-18); CALCIUM 9.1 MG/DL (8.5-10.1); CARBON DIOXIDE 29 MMOL/L (21-32); CHLORIDE 101 MMOL/L (98-107); CREATININE 1.3 MG/DL (0.55-1.30); POTASSIUM 3.7 MMOL/L (3.5-5.1); SODIUM 141 MMOL/L (136-145)
[2019-06-06 05:08] LABS: ALANINE AMINOTRANSFERASE 22 U/L (12-78); ALBUMIN 3.9 G/DL (3.4-5.0); ALBUMIN/GLOBULIN RATIO 0.9 (1.0-2.7); ASPARTATE AMINO TRANSFERASE 28 U/L (15-37)
[2019-06-06 05:29] LABS: BILIRUBIN,DIRECT 0.6 MG/DL (0.0-0.3)
[2019-06-06 05:49] LABS: ALKALINE PHOSPHATASE 88 U/L (46-116)
[2019-06-06] MEDS: HydrALAZINE 50mg tab ORAL SCH ×3 (05:59→21:05)
--- NOTE | 2019-06-06 07:19 | NUR ---
NURSE NOTES: Received bedside report from Benjy Gasca RN. Pt. in bed, awake, a/o x 4. No sign of distress. On R.A. No grimacing noted. IV site @ right FA #[id number]. in placed patent/intact running D5NS @ 100cc/hr. Tolerating well. Bed in low position, locked. Call light within reach. Will cont. to monitor.
--- NOTE | 2019-06-06 07:20 | NUR ---
HAND-OFF: Report given to Aaliyah WILLIAMSON MAURY.
--- NOTE | 2019-06-06 07:59 | Nephrology Progress Note ---
Assessment/Plan Assessment/Plan: A/P 1) HTN Urgency- improved. Will adjust po medications today 2) Abd Pain- pancreatitis- Lipase 3000 - NPO - GI to evaluate 3) ACS/Chest Pain- appreciate cardiology input 4) DVT prophylaxsis- SCDs 5) E-ABN- replace K+/Phos and Mg Thiamine and folate Subjective Date patient seen: Jun 06, 2019 Time patient seen: 07:56 ROS Limited/Unobtainable: No Constitutional: Reports: weakness Gastrointestinal/Abdominal: Reports: abdominal pain Allergies: Coded Allergies: No Known Allergies (Unverified , 09/25/14) Subjective Patient still having abdominal pain Objective Last 24 Hour Vital Signs Date Time Temp Pulse Resp B/P (MAP) Pulse Ox O2 Delivery O2 Flow Rate FiO2 06/06/19 05:59 159/105 06/06/19 04:00 Room Air 06/06/19 04:00 108 06/06/19 04:00 98.1 100 20 159/105 (123) 99 06/06/19 00:00 Room Air 06/06/19 00:00 98.3 116 20 165/109 (127) 99 06/06/19 00:00 92 06/05/19 22:58 Room Air 06/05/19 21:59 200/115 06/05/19 21:01 108 181/112 06/05/19 20:00 96 06/05/19 20:00 98.1 108 18 192/103 (132) 99 06/05/19 20:00 Room Air 06/05/19 19:57 96 06/05/19 19:00 Room Air 06/05/19 19:00 Room Air 06/05/19 18:42 98.0 88 18 185/115 99 06/05/19 18:00 88 18 182/108 98 Room Air 06/05/19 17:31 110 185/118 06/05/19 16:35 91 18 189/115 97 Room Air 06/05/19 15:48 217/126 06/05/19 15:30 98.2 117 18 207/131 98 Room Air 06/05/19 14:45 132 20 Room Air 06/05/19 14:45 98.2 132 20 195/131 99 Room Air 06/05/19 14:35 98.2 132 20 165/112 (129) 99 Room Air Intake and Output 06/05/19 06/06/19 19:00 07:00 Intake Total 4100 ml 1200 ml Output Total 850 ml Balance 4100 ml 350 ml Intake IV Total 4100 ml 1200 ml Output Urine Total 850 ml # Voids 2 Laboratory Tests 06/05/19 14:58: White Blood Count 9.5, Red Blood Count 4.40L, Hemoglobin 14.2, Hematocrit 40.6L , Mean Corpuscular Volume 92, Mean Corpuscular Hemoglobin 32.2H, Mean Corpuscular Hemoglobin Concent 34.9, Red Cell Distribution Width 12.6, Platelet Count 334, Mean Platelet Volume 5.1L, Neutrophils (%) (Auto) 84.1H, Lymphocytes (%) (Auto) 10.3L, Monocytes (%) (Auto) 5.0, Eosinophils (%) (Auto) 0.0, Basophils (%) (Auto) 0.6, Prothrombin Time 9.8, Prothromb Time International Ratio 0.9, Activated Partial Thromboplast Time 27, Sodium Level 143, Potassium Level 4.0, Chloride Level 99, Carbon Dioxide Level 21, Anion Gap 23H, Blood Urea Nitrogen 39H, Creatinine 1.7H, Estimat Glomerular Filtration Rate 50.7, Glucose Level 117H, Lactic Acid Level 3.20H, Calcium Level 9.1, Phosphorus Level 4.3, Magnesium Level 1.2L, Total Bilirubin 2.5H, Direct Bilirubin 0.4H, Aspartate Amino Transf (AST/SGOT) 36, Alanine Aminotransferase (ALT/SGPT) 26, Alkaline Phosphatase 100, Total Creatine Kinase 166, Creatine Kinase MB 2.4, Creatine Kinase MB Relative Index 1.4, Troponin I 0.012, Pro-B-Type Natriuretic Peptide 788H, Total Protein 8.9H, Albumin 4.3, Globulin 4.6, Albumin/Globulin Ratio 0.9L, Lipase > 2000H, Salicylates Level < 2.0L, Acetaminophen Level < 2L, Serum Alcohol 7 06/05/19 16:21: Lactic Acid Level 2.60H 06/05/19 16:30: Urine Color Pale yellow, Urine Appearance Clear, Urine pH 5, Urine Specific [place] 1.015, Urine Protein 3+H, Urine Glucose (UA) Negative, Urine Ketones 3+H , Urine Blood 1+H, Urine Nitrite Negative, Urine Bilirubin Negative, Urine Urobilinogen Normal, Urine Leukocyte Esterase Negative, Urine RBC 0-2H, Urine WBC 0-2, Urine Squamous Epithelial Cells None, Urine Bacteria Few, Urine Opiates Screen Negative, Urine Barbiturates Screen Negative, Phencyclidine (PCP ) Screen Negative, Urine Amphetamines Screen Negative, Urine Benzodiazepines Screen Negative, Urine Cocaine Screen Negative, Urine Marijuana (THC) Screen Negative 06/06/19 03:50: White Blood Count 11.0H, Red Blood Count 4.69L, Hemoglobin 14.7, Hematocrit 45.5 , Mean Corpuscular Volume 97, Mean Corpuscular Hemoglobin 31.4H, Mean Corpuscular Hemoglobin Concent 32.3, Red Cell Distribution Width 13.3, Platelet Count 298, Mean Platelet Volume 5.4L, Neutrophils (%) (Auto) 78.9H, Lymphocytes (%) (Auto) 11.2L, Monocytes (%) (Auto) 8.2, Eosinophils (%) (Auto) 0.8, Basophils (%) (Auto) 0.9, Sodium Level 141, Potassium Level 3.7, Chloride Level 101, Carbon Dioxide Level 29, Anion Gap 11, Blood Urea Nitrogen 31H, Creatinine 1.3, Estimat Glomerular Filtration Rate > 60, Glucose Level 161H, Calcium Level 9.1, Phosphorus Level 1.9L, Magnesium Level 1.7L, Total Bilirubin 3.0H, Direct Bilirubin 0.6H, Aspartate Amino Transf (AST/SGOT) 28, Alanine Aminotransferase ( ALT/SGPT) 22, Alkaline Phosphatase 88, Troponin I 0.050, Pro-B-Type Natriuretic Peptide 2160H, Total Protein 8.2, Albumin 3.9, Globulin 4.3, Albumin/Globulin Ratio 0.9L, Lipase 2847H, Triglycerides Level 154H, Cholesterol Level 216H, LDL Cholesterol 78, HDL Cholesterol 130H, Cholesterol/HDL Ratio 1.7L Height (Feet): 6 Height (Inches): 1.00 Weight (Pounds): 190 General Appearance: mild distress EENT: normal ENT inspection Neck: normal alignment, supple Cardiovascular: normal rate, regular rhythm Respiratory/Chest: lungs clear, normal breath sounds Abdomen: soft, guarding Edema: no edema noted Arm (L), no edema noted Arm (R), no edema noted Leg (L), no edema noted Leg (R), no edema noted Pedal (L), no edema noted Pedal (R), no edema noted Generalized Bry Sultana MD Jun 06, 2019 07:59
[2019-06-06 08:00] VITALS: BP 155/99
[2019-06-06] MEDS: Carvedilol 6.25mg Tab ORAL SCH ×2 (08:37→20:41)
[2019-06-06] MEDS: Aspirin Baby 81mg ORAL SCH (08:37)
[2019-06-06] MEDS: Thiamine 100mg tab ORAL SCH (08:37)
--- NOTE | 2019-06-06 09:28 | NUR ---
*-* NO INSURANCE INFORMATION IN THE BAR UNABLE TO SEND CLINICALS OR REVIEWS *-*
[2019-06-06] MEDS ORDERED: Potassium Phosphate 20 MM in NS 275 ML IV SCH (10:00)
--- NOTE | 2019-06-06 10:32 | NUR ---
Social Work This SW received notification due to substance abuse. This Sw met with patient who is currently unresponsive due to currently in detoxification from alcohol. Nursing to contact this SW when patient is more alert to discuss substance abuse program, resources. Patient appears independent with ADLs, ambulation.
--- NOTE | 2019-06-06 10:37 | GI Initial Consult Note ---
History of Present Illness General Date patient seen: Jun 06, 2019 Time patient seen: 10:32 Reason for Hospitalization: Chest Pain Referring physician: HOLLIE PALM Reason for Consultation: ALCOHOLIC PANCREATITIS Present Illness HPI 59-year-old male with a history of polysubstance abuse including cocaine, amphetamines, chronic alcoholic (1 gallon of vodka daily), CHF, CAD status post stent presents for evaluation of chest pain for 1 day. He reports a sharp stabbing left-sided chest pain that does not radiate, not associated with shortness of breath. He began yesterday morning while at rest watching TV. No changes in intensity with exertion or with rest. He notes diaphoresis, tachycardia. He normally drinks 1 gallon of vodka daily but did not drink any today. He states he has had alcohol withdrawal seizures in the past. He has been without his antihypertensive medications for 1 week. Does not know what medications he is taking. He states he was recently taken for an angiogram 3 weeks ago at [facility] but does not know if he had a new stent placed. He does state that he has a stent. Has not been compliant with any of his medications. He denies fevers, chills, abdominal pain, diarrhea. One episode of emesis this morning. Denies rash, skin breakdown, dysuria, hematuria, hematochezia or melena. GI consulted for reported on alcoholic pancreatitis. ROS limited, patient unwilling to provide any significant history at this time. Patient seen, awake alert no apparent distress with no active signs or symptoms of nausea vomiting. No known history of endoscopic colonoscopy. Home Meds Reported Medications Naproxen (Naproxen) 250 Mg Tablet, 250 MG PO, TAB 06/05/19 Hydrochlorothiazide* (HYDROCHLOROTHIAZIDE*) 12.5 Mg Capsule, 12.5 MG ORAL DAILY , CAP 06/05/19 Atorvastatin Calcium* (LIPITOR*) 10 Mg Tablet, 10 MG ORAL BEDTIME, TAB 06/05/19 Amlodipine Besylate (Norvasc) 2.5 Mg Tablet, 2.5 MG ORAL DAILY, TAB 06/05/19 Nitroglycerin (NITROGLYCERIN) 2.5 Mg Capsule.er, 2.5 MG PO, CAP 06/05/19 Lisinopril (LISINOPRIL*) 5 Mg Tablet, 5 MG ORAL DAILY, TAB 06/05/19 Med list reviewed/reconciled: Yes Allergies: Coded Allergies: No Known Allergies (Unverified , 09/25/14) Patient History History Provided By: Patient, Medical Record PMH Narrative PMH: Alcohol withdrawal seizures, polysubstance abuse, CAD, CHF PSH: Angiogram Allergies: None Social Hx: Chronic alcohol use, tobacco use, polysubstance use Allergies: Coded Allergies: No Known Allergies (Unverified , 09/25/14) Nursing Documentation-PMH Hx Cardiac Problems: No - Stents x 3 Hx Hypertension: Yes Hx Cancer: No Hx Gastrointestinal Problems: No Hx Neurological Problems: No Hx Seizures: Yes Social History: Reports: alcohol use, drug use Review of Systems All Other Systems: negative except mentioned in HPI Physical Exam Vital Signs Date Time Temp Pulse Resp B/P (MAP) Pulse Ox O2 Delivery O2 Flow Rate FiO2 06/05/19 14:35 98.2 132 20 165/112 (129) 99 Room Air Sp02 EP Interpretation: reviewed, normal Labs Laboratory Tests Test 06/05/19 14:58 06/05/19 16:21 06/05/19 16:30 06/06/19 03:50 White Blood Count 9.5 K/UL (4.8-10.8) 11.0 K/UL (4.8-10.8) H Red Blood Count 4.40 M/UL (4.70-6.10) L 4.69 M/UL (4.70-6.10) L Hemoglobin 14.2 G/DL (14.2-18.0) 14.7 G/DL (14.2-18.0) Hematocrit 40.6 % (42.0-52.0) L 45.5 % (42.0-52.0) Mean Corpuscular Volume 92 FL (80-99) 97 FL (80-99) Mean Corpuscular Hemoglobin 32.2 PG (27.0-31.0) H 31.4 PG (27.0-31.0) H Mean Corpuscular Hemoglobin Concent 34.9 G/DL (32.0-36.0) 32.3 G/DL (32.0-36.0) Red Cell Distribution Width 12.6 % (11.6-14.8) 13.3 % (11.6-14.8) Platelet Count 334 K/UL (150-450) 298 K/UL (150-450) Mean Platelet Volume 5.1 FL (6.5-10.1) L 5.4 FL (6.5-10.1) L Neutrophils (%) (Auto) 84.1 % (45.0-75.0) H 78.9 % (45.0-75.0) H Lymphocytes (%) (Auto) 10.3 % (20.0-45.0) L 11.2 % (20.0-45.0) L Monocytes (%) (Auto) 5.0 % (1.0-10.0) 8.2 % (1.0-10.0) Eosinophils (%) (Auto) 0.0 % (0.0-3.0) 0.8 % (0.0-3.0) Basophils (%) (Auto) 0.6 % (0.0-2.0) 0.9 % (0.0-2.0) Prothrombin Time 9.8 SEC (9.30-11.50) Prothromb Time International Ratio 0.9 (0.9-1.1) Activated Partial Thromboplast Time 27 SEC (23-33) Sodium Level 143 MMOL/L (136-145) 141 MMOL/L (136-145) Potassium Level 4.0 MMOL/L (3.5-5.1) 3.7 MMOL/L (3.5-5.1) Chloride Level 99 MMOL/L (98-107) 101 MMOL/L (98-107) Carbon Dioxide Level 21 MMOL/L (21-32) 29 MMOL/L (21-32) Anion Gap 23 mmol/L (5-15) H 11 mmol/L (5-15) Blood Urea Nitrogen 39 mg/dL (7-18) H 31 mg/dL (7-18) H Creatinine 1.7 MG/DL (0.55-1.30) H 1.3 MG/DL (0.55-1.30) Estimat Glomerular Filtration Rate 50.7 mL/min (>60) > 60 mL/min (>60) Glucose Level 117 MG/DL (74-106) H 161 MG/DL (74-106) H Lactic Acid Level 3.20 mmol/L (0.4-2.0) H 2.60 mmol/L (0.66-2.22) H Calcium Level 9.1 MG/DL (8.5-10.1) 9.1 MG/DL (8.5-10.1) Phosphorus Level 4.3 MG/DL (2.5-4.9) 1.9 MG/DL (2.5-4.9) L Magnesium Level 1.2 MG/DL (1.8-2.4) L 1.7 MG/DL (1.8-2.4) L Total Bilirubin 2.5 MG/DL (0.2-1.0) H 3.0 MG/DL (0.2-1.0) H Direct Bilirubin 0.4 MG/DL (0.0-0.3) H 0.6 MG/DL (0.0-0.3) H Aspartate Amino Transf (AST/SGOT) 36 U/L (15-37) 28 U/L (15-37) Alanine Aminotransferase (ALT/SGPT) 26 U/L (12-78) 22 U/L (12-78) Alkaline Phosphatase 100 U/L (46-116) 88 U/L (46-116) Total Creatine Kinase 166 U/L (26-308) Creatine Kinase MB 2.4 NG/ML (0.0-3.6) Creatine Kinase MB Relative Index 1.4 Troponin I 0.012 ng/mL (0.000-0.056) 0.050 ng/mL (0.000-0.056) Pro-B-Type Natriuretic Peptide 788 pg/mL (0-125) H 2160 pg/mL (0-125) H Total Protein 8.9 G/DL (6.4-8.2) H 8.2 G/DL (6.4-8.2) Albumin 4.3 G/DL (3.4-5.0) 3.9 G/DL (3.4-5.0) Globulin 4.6 g/dL 4.3 g/dL Albumin/Globulin Ratio 0.9 (1.0-2.7) L 0.9 (1.0-2.7) L Lipase > 2000 U/L (73-393) H 2847 U/L (73-393) H Salicylates Level < 2.0 ug/mL (2.8-20) L Acetaminophen Level < 2 MCG/ML (10-30) L Serum Alcohol 7 mg/dL Urine Color Pale yellow Urine Appearance Clear Urine pH 5 (4.5-8.0) Urine Specific [place] 1.015 (1.005-1.035) Urine Protein 3+ (NEGATIVE) H Urine Glucose (UA) Negative (NEGATIVE) Urine Ketones 3+ (NEGATIVE) H Urine Blood 1+ (NEGATIVE) H Urine Nitrite Negative (NEGATIVE) Urine Bilirubin Negative (NEGATIVE) Urine Urobilinogen Normal MG/DL (0.0-1.0) Urine Leukocyte Esterase Negative (NEGATIVE) Urine RBC 0-2 /HPF (0 - 0) H Urine WBC 0-2 /HPF (0 - 0) Urine Squamous Epithelial Cells None /LPF (NONE/OCC) Urine Bacteria Few /HPF (NONE) Urine Opiates Screen Negative (NEGATIVE) Urine Barbiturates Screen Negative (NEGATIVE) Phencyclidine (PCP) Screen Negative (NEGATIVE) Urine Amphetamines Screen Negative (NEGATIVE) Urine Benzodiazepines Screen Negative (NEGATIVE) Urine Cocaine Screen Negative (NEGATIVE) Urine Marijuana (THC) Screen Negative (NEGATIVE) Triglycerides Level 154 MG/DL (30-150) H Cholesterol Level 216 MG/DL (< 200) H LDL Cholesterol 78 mg/dL (<100) HDL Cholesterol 130 MG/DL (40-60) H Cholesterol/HDL Ratio 1.7 (3.3-4.4) L General Appearance: well appearing, no apparent distress, alert Head: normocephalic EENT: PERRL/EOMI, normal ENT inspection Neck: supple Respiratory: normal breath sounds, no respiratory distress Cardiovascular: normal rate Gastrointestinal: normal inspection, non tender, soft, normal bowel sounds, non -distended Rectal: deferred Genitourinary: deferred Musculoskeletal: normal inspection, back normal Neurologic: normal inspection, alert, oriented x3, responsive Psychiatric: normal inspection, judgement/insight normal, memory normal Skin: normal inspection, normal color, no rash, warm/dry, palpation normal, well hydrated Lymphatic: normal inspection, no adenopathy Current Medications Current Medications Medications (Trade) Dose Ordered Sig/David Route PRN Reason Start Time Stop Time Status Last Admin Dose Admin Acetaminophen (Tylenol) 650 mg Q4H PRN ORAL Mild Pain (Pain Scale 1-3) 06/05/19 17:45 07/05/19 17:44 Amlodipine Besylate (Norvasc) 10 mg DAILY ORAL 8/12/19 18:00 07/05/19 17:59 06/06/19 08:37 Aspirin (ASA) 81 mg DAILY ORAL 06/06/19 09:00 07/06/19 08:59 06/06/19 08:37 Carvedilol (Coreg) 6.25 mg EVERY 12 HOURS ORAL 06/06/19 09:00 07/06/19 08:59 06/06/19 08:37 Clonidine HCl (Catapres tab) 0.2 mg Q4H PRN ORAL SBP>170 06/05/19 19:00 07/05/19 18:59 Dextrose (Dextrose 50%) 25 ml Q30M PRN IV Hypoglycemia 06/05/19 17:45 07/05/19 17:44 Dextrose (Dextrose 50%) 50 ml Q30M PRN IV Hypoglycemia 06/05/19 17:45 07/05/19 17:44 Dextrose/Sodium Chloride 1,000 ml @ 100 mls/hr Q10H IV 06/05/19 18:43 07/05/19 18:42 06/06/19 04:01 Famotidine (Pepcid) 40 mg DAILY ORAL 06/06/19 09:00 07/06/19 08:59 06/06/19 08:36 Folic Acid (Folate) 1 mg DAILY ORAL 06/06/19 09:00 07/06/19 08:59 06/06/19 08:37 Hydralazine HCl (Apresoline) 10 mg Q4H PRN IV For High Blood Pressure 06/05/19 18:00 07/05/19 17:59 Hydralazine HCl (Apresoline) 50 mg Q8HR ORAL 06/05/19 22:00 07/05/19 21:59 06/06/19 05:59 Lorazepam (Ativan 2mg/ml 1ml) 2 mg Q4H PRN IV For Seizures 06/06/19 03:45 06/13/19 03:44 Nitroglycerin (Ntg) 0.4 mg Q5M PRN SL Prn Chest Pain 06/05/19 17:45 07/05/19 17:44 Ondansetron HCl (Zofran) 4 mg Q6H PRN IVP Nausea & Vomiting 06/05/19 17:45 9/11/19 17:44 Potassium Phosphate 20 mm/ Sodium Chloride 281.6667 ml @ 46.944 m... ONCE IV 06/06/19 10:00 06/06/19 17:00 06/06/19 10:19 Thiamine HCl (Vitamin B1) 100 mg DAILY ORAL 06/06/19 09:00 07/06/19 08:59 06/06/19 08:37 GI: Plan Problems: (1) Alcoholic pancreatitis (2) Polysubstance abuse (3) Elevated lipase (4) Alcohol withdrawal (5) Amphetamine abuse (6) Cocaine abuse Plan Given history of EtOH abuse, will obtain abdominal ultrasound Maintain n.p.o. plus aggressive hydration Obtain a drug urine toxicity Electrolyte correction Pain management PPI Zofran as needed Trend lipase outpatient GI procedures Discussed with Dr. Le. Thank you for this patient referral, we will follow. The patient was seen and examined at bedside and all new and available data was reviewed in the patients chart. I agree with the above findings, impression and plan. (Patient seen earlier today. Signature stamp does not reflect patient encounter time.). - MD Alejandra [facility] SECURITIES SALES [facility]OCIATE Jun 06, 2019 10:37
[2019-06-06 12:00] VITALS: BP 147/101
--- NOTE | 2019-06-06 15:39 | Cardiac Electrophysiology PN ---
Assessment/Plan Assessment/Plan 1. Chest pain. Troponin is negative. EKG has inferior ischemia. This is likely the effect of cocaine and polysubstance abuse. Urine tox is negative now 2. HTN. On Norvasc 10 mg daily, hydralazine 50 q 8 and Coreg 3.125 bid 3. History of heavy alcohol use. On thiamine and folate. 4. History of cocaine and meth use. 5. Pancreatitis. Lipase is more than 2000. Further evaluation by GI. OLVIN RN Subjective Subjective Remained in Sinus tach in 140s when goes to bath room. No VT or fib Objective Last 24 Hour Vital Signs Date Time Temp Pulse Resp B/P (MAP) Pulse Ox O2 Delivery O2 Flow Rate FiO2 06/06/19 15:02 147/101 06/06/19 12:00 Room Air 06/06/19 12:00 98.7 103 21 147/101 (116) 98 06/06/19 11:44 104 06/06/19 08:37 131 155/99 06/06/19 08:37 131 155/99 06/06/19 08:00 109 06/06/19 08:00 Room Air 06/06/19 08:00 97.7 131 20 155/99 (117) 98 06/06/19 05:59 159/105 06/06/19 04:00 Room Air 06/06/19 04:00 108 06/06/19 04:00 98.1 100 20 159/105 (123) 99 06/06/19 00:00 Room Air 06/06/19 00:00 98.3 116 20 165/109 (127) 99 06/06/19 00:00 92 06/05/19 22:58 Room Air 06/05/19 21:59 200/115 06/05/19 21:01 108 181/112 06/05/19 20:00 96 06/05/19 20:00 98.1 108 18 192/103 (132) 99 06/05/19 20:00 Room Air 06/05/19 19:57 96 06/05/19 19:00 Room Air 06/05/19 19:00 Room Air 06/05/19 18:42 98.0 88 18 185/115 99 06/05/19 18:00 88 18 182/108 98 Room Air 06/05/19 17:31 110 185/118 06/05/19 16:35 91 18 189/115 97 Room Air 06/05/19 15:48 217/126 Intake and Output 06/05/19 06/06/19 19:00 07:00 Intake Total 4100 ml 1300 ml Output Total 850 ml Balance 4100 ml 450 ml Intake IV Total 4100 ml 1300 ml Output Urine Total 850 ml # Voids 2 Laboratory Tests Test 06/05/19 16:21 06/05/19 16:30 06/06/19 03:50 Lactic Acid Level 2.60 mmol/L (0.66-2.22) H Urine Color Pale yellow Urine Appearance Clear Urine pH 5 (4.5-8.0) Urine Specific [place] 1.015 (1.005-1.035) Urine Protein 3+ (NEGATIVE) H Urine Glucose (UA) Negative (NEGATIVE) Urine Ketones 3+ (NEGATIVE) H Urine Blood 1+ (NEGATIVE) H Urine Nitrite Negative (NEGATIVE) Urine Bilirubin Negative (NEGATIVE) Urine Urobilinogen Normal MG/DL (0.0-1.0) Urine Leukocyte Esterase Negative (NEGATIVE) Urine RBC 0-2 /HPF (0 - 0) H Urine WBC 0-2 /HPF (0 - 0) Urine Squamous Epithelial Cells None /LPF (NONE/OCC) Urine Bacteria Few /HPF (NONE) Urine Opiates Screen Negative (NEGATIVE) Urine Barbiturates Screen Negative (NEGATIVE) Phencyclidine (PCP) Screen Negative (NEGATIVE) Urine Amphetamines Screen Negative (NEGATIVE) Urine Benzodiazepines Screen Negative (NEGATIVE) Urine Cocaine Screen Negative (NEGATIVE) Urine Marijuana (THC) Screen Negative (NEGATIVE) White Blood Count 11.0 K/UL (4.8-10.8) H Red Blood Count 4.69 M/UL (4.70-6.10) L Hemoglobin 14.7 G/DL (14.2-18.0) Hematocrit 45.5 % (42.0-52.0) Mean Corpuscular Volume 97 FL (80-99) Mean Corpuscular Hemoglobin 31.4 PG (27.0-31.0) H Mean Corpuscular Hemoglobin Concent 32.3 G/DL (32.0-36.0) Red Cell Distribution Width 13.3 % (11.6-14.8) Platelet Count 298 K/UL (150-450) Mean Platelet Volume 5.4 FL (6.5-10.1) L Neutrophils (%) (Auto) 78.9 % (45.0-75.0) H Lymphocytes (%) (Auto) 11.2 % (20.0-45.0) L Monocytes (%) (Auto) 8.2 % (1.0-10.0) Eosinophils (%) (Auto) 0.8 % (0.0-3.0) Basophils (%) (Auto) 0.9 % (0.0-2.0) Sodium Level 141 MMOL/L (136-145) Potassium Level 3.7 MMOL/L (3.5-5.1) Chloride Level 101 MMOL/L (98-107) Carbon Dioxide Level 29 MMOL/L (21-32) Anion Gap 11 mmol/L (5-15) Blood Urea Nitrogen 31 mg/dL (7-18) H Creatinine 1.3 MG/DL (0.55-1.30) Estimat Glomerular Filtration Rate > 60 mL/min (>60) Glucose Level 161 MG/DL (74-106) H Calcium Level 9.1 MG/DL (8.5-10.1) Phosphorus Level 1.9 MG/DL (2.5-4.9) L Magnesium Level 1.7 MG/DL (1.8-2.4) L Total Bilirubin 3.0 MG/DL (0.2-1.0) H Direct Bilirubin 0.6 MG/DL (0.0-0.3) H Aspartate Amino Transf (AST/SGOT) 28 U/L (15-37) Alanine Aminotransferase (ALT/SGPT) 22 U/L (12-78) Alkaline Phosphatase 88 U/L (46-116) Troponin I 0.050 ng/mL (0.000-0.056) Pro-B-Type Natriuretic Peptide 2160 pg/mL (0-125) H Total Protein 8.2 G/DL (6.4-8.2) Albumin 3.9 G/DL (3.4-5.0) Globulin 4.3 g/dL Albumin/Globulin Ratio 0.9 (1.0-2.7) L Triglycerides Level 154 MG/DL (30-150) H Cholesterol Level 216 MG/DL (< 200) H LDL Cholesterol 78 mg/dL (<100) HDL Cholesterol 130 MG/DL (40-60) H Cholesterol/HDL Ratio 1.7 (3.3-4.4) L Lipase 2847 U/L (73-393) H Objective HEAD AND NECK: Shows no JVD. LUNGS: Decreased breath sounds. CARDIOVASCULAR: Shows regular S1 and S2 with no gallop. ABDOMEN: Soft. EXTREMITIES: No pitting edema. Pillo Huggins MD Jun 06, 2019 15:39
--- NOTE | 2019-06-06 15:50 | Diagnostic Imaging Report ---
ABDOMINAL ULTRASOUND - COMPLETE INDICATION: Abdominal pain, elevated liver function tests, elevated lipase. TECHNIQUE: Multiplanar ultrasound examination of the abdomen with greyscale and doppler imaging. COMPARISON: CT abdomen and pelvis dated 04/01/2019 FINDINGS: Liver: The liver is normal in size and demonstrates increased echogenicity. No focal abnormalities are noted. Gallbladder: The gallbladder is distended without wall thickening. No stones are visualized. There is no sonographic Rollins sign. Common bile duct: Normal in size, measuring 3 mm. Pancreas: The visualized portion of pancreas is normal in echogenicity. There are no masses. Kidneys: The kidneys are normal in size and echogenicity. There is no hydronephrosis. Spleen: The spleen is normal in size and echogenicity. Aorta: The aorta is normal in caliber. IMPRESSION: 1. No acute sonographic findings. 2. Hepatic steatosis.
[2019-06-06 16:00] VITALS: BP 132/84
--- NOTE | 2019-06-06 19:05 | NUR ---
NURSE NOTES: Pt report from stacie RN [facility]. pt remains stable despite HTN. pt is alert and oriented times 4, able to follow commands. pt remains HTNsive with NSR to ST at times, no other cardiac abnormalities noted, truss driver helper attached. pt is on room air, no resp abnormalities noted. pt bed locked and low, bed armed, call light within reach. continuing with plan of care.
--- NOTE | 2019-06-06 19:16 | NUR ---
HAND-OFF: Report given to Benjy Gasca RN. Pt. remain stable.
[2019-06-06 20:00] VITALS: BP 151/112
[2019-06-07] VITALS (7 sets, daily range): BP systolic 114–163; BP diastolic 72–112
[2019-06-07] MEDS: D5NS 1,000 ML IV SCH (00:01)
[2019-06-07 05:19] LABS: BASOPHILS % (AUTO) 1.1 % (0.0-2.0); EOSINOPHILS % (AUTO) 2.7 % (0.0-3.0); HEMATOCRIT 42.9 % (42.0-52.0); HEMOGLOBIN 14.2 G/DL (14.2-18.0); LYMPHOCYTES % (AUTO) 23.1 % (20.0-45.0); MEAN CORPUSCULAR VOLUME 97 FL (80-99); NEUTROPHILS % (AUTO) 64.1 % (45.0-75.0); PLATELET COUNT 270 K/UL (150-450); RED BLOOD COUNT 4.42 M/UL (4.70-6.10); RED CELL DISTRIBUTION WIDTH 13.2 % (11.6-14.8); WHITE BLOOD COUNT 7.4 K/UL (4.8-10.8)
[2019-06-07] MEDS: HydrALAZINE 50mg tab ORAL SCH ×3 (05:29→21:38)
[2019-06-07 05:47] LABS: ANION GAP 10 mmol/L (5-15); BLOOD UREA NITROGEN 21 mg/dL (7-18); CALCIUM 9.3 MG/DL (8.5-10.1); CARBON DIOXIDE 28 MMOL/L (21-32); CHLORIDE 98 MMOL/L (98-107); CREATININE 1.4 MG/DL (0.55-1.30); POTASSIUM 3.9 MMOL/L (3.5-5.1); SODIUM 136 MMOL/L (136-145)
--- NOTE | 2019-06-07 07:20 | NUR ---
HAND-OFF: Report given to SHANTANU MENDIOLA. pt is in stable condition.
--- NOTE | 2019-06-07 07:21 | NUR ---
NURSE NOTES: Report received from Benjy Gasca RN. Pt asleep, easily arousable. A&Ox4. Pt on Room Air, NSR on child monitor. Pt remains on a clear liquid diet. Urinal at bedside. IV Rt wrist #20, running D5NS@100mL/hr. Bed in lowest position, call light within reach, side rails up x2. Will resume plan of care.
[2019-06-07] MEDS ORDERED: Zolpidem 5mg tab ORAL PRN ×2 (07:45→21:00)
--- NOTE | 2019-06-07 07:46 | Nephrology Progress Note ---
Assessment/Plan Assessment/Plan: A/P 1) HTN Urgency- resolved. Increase po Coreg 2) Abd Pain- pancreatitis- Lipase 3000---->850 - clear liquids 3) ACS/Chest Pain- appreciate cardiology input - transfer to [facility] 4) DVT prophylaxsis- SCDs 5) E-ABN- replace K+/Phos and Mg prn Thiamine and folate Subjective Date patient seen: Jun 07, 2019 Time patient seen: 07:44 ROS Limited/Unobtainable: No Allergies: Coded Allergies: No Known Allergies (Unverified , 09/25/14) Subjective Patient much improved and coherent Objective Last 24 Hour Vital Signs Date Time Temp Pulse Resp B/P (MAP) Pulse Ox O2 Delivery O2 Flow Rate FiO2 06/07/19 05:29 162/109 06/07/19 04:00 Room Air 06/07/19 04:00 92 06/07/19 04:00 98.0 106 20 163/109 (127) 99 06/07/19 00:00 97.9 105 20 161/112 (128) 99 06/07/19 00:00 Room Air 06/07/19 00:00 86 06/06/19 21:05 147/109 06/06/19 20:41 105 151/109 06/06/19 20:00 Room Air 06/06/19 20:00 98.0 104 20 151/112 (125) 99 06/06/19 19:03 95 06/06/19 19:03 95 06/06/19 16:00 Room Air 06/06/19 16:00 98.9 108 20 132/84 (100) 98 06/06/19 15:09 131 06/06/19 15:02 147/101 06/06/19 12:00 Room Air 06/06/19 12:00 98.7 103 21 147/101 (116) 98 06/06/19 11:44 104 06/06/19 08:37 131 155/99 06/06/19 08:37 131 155/99 06/06/19 08:00 109 06/06/19 08:00 Room Air 06/06/19 08:00 97.7 131 20 155/99 (117) 98 Intake and Output 06/06/19 06/07/19 19:00 07:00 Intake Total 900 ml 150 ml Output Total 1400 ml 800 ml Balance -500 ml -650 ml Intake Oral 150 ml IV Total 900 ml Output Urine Total 1400 ml 800 ml # Bowel Movements 1 1 Laboratory Tests 06/07/19 03:00: White Blood Count 7.4, Red Blood Count 4.42L, Hemoglobin 14.2, Hematocrit 42.9, Mean Corpuscular Volume 97, Mean Corpuscular Hemoglobin 32.2H, Mean Corpuscular Hemoglobin Concent 33.2, Red Cell Distribution Width 13.2, Platelet Count 270, Mean Platelet Volume 5.4L, Neutrophils (%) (Auto) 64.1, Lymphocytes (%) (Auto) 23.1, Monocytes (%) (Auto) 9.0, Eosinophils (%) (Auto) 2.7, Basophils (%) (Auto ) 1.1, Sodium Level 136, Potassium Level 3.9, Chloride Level 98, Carbon Dioxide Level 28, Anion Gap 10, Blood Urea Nitrogen 21H, Creatinine 1.4H, Estimat Glomerular Filtration Rate > 60, Glucose Level 153H, Calcium Level 9.3, Phosphorus Level 2.0L, Magnesium Level 1.5L, Amylase Level 103, Lipase 865H Height (Feet): 6 Height (Inches): 1.00 Weight (Pounds): 190 General Appearance: no apparent distress, alert EENT: normal ENT inspection Neck: normal alignment, supple Cardiovascular: normal rate, regular rhythm Respiratory/Chest: lungs clear, normal breath sounds Abdomen: non tender, soft Edema: no edema noted Arm (L), no edema noted Arm (R), no edema noted Leg (L), no edema noted Leg (R), no edema noted Pedal (L), no edema noted Pedal (R), no edema noted Generalized Bry Sultana MD Jun 07, 2019 07:46
[2019-06-07] MEDS: Aspirin Baby 81mg ORAL SCH (08:34)
[2019-06-07] MEDS: Thiamine 100mg tab ORAL SCH (08:34)
[2019-06-07] MEDS ORDERED: Carvedilol 12.5mg tab ORAL SCH (09:00)
--- NOTE | 2019-06-07 09:19 | Cardiology Progress Note ---
Assessment/Plan Status: stable Assessment/Plan Assessment/Plan Assessment/Plan 1. Chest pain. Troponin is negative. EKG has inferior ischemia. This is likely the effect of cocaine and polysubstance abuse. Urine tox is negative now Echocardiogram pending Stress test prior to discharge 2. HTN. Controlled On Norvasc 10 mg daily, hydralazine 50 q 8 and Coreg 3.125 bid 3. History of heavy alcohol use. On thiamine and folate. 4. History of cocaine and meth use. 5. Pancreatitis. Lipase is more than 2000. Further evaluation by GI. Objective Last 24 Hour Vital Signs Date Time Temp Pulse Resp B/P (MAP) Pulse Ox O2 Delivery O2 Flow Rate FiO2 06/07/19 08:00 Room Air 06/07/19 08:00 97.2 69 20 114/72 (86) 100 06/07/19 05:29 162/109 06/07/19 04:00 Room Air 06/07/19 04:00 92 06/07/19 04:00 98.0 106 20 163/109 (127) 99 06/07/19 00:00 97.9 105 20 161/112 (128) 99 06/07/19 00:00 Room Air 06/07/19 00:00 86 06/06/19 21:05 147/109 06/06/19 20:41 105 151/109 06/06/19 20:00 Room Air 06/06/19 20:00 98.0 104 20 151/112 (125) 99 06/06/19 19:03 95 06/06/19 19:03 95 06/06/19 16:00 Room Air 06/06/19 16:00 98.9 108 20 132/84 (100) 98 06/06/19 15:09 131 06/06/19 15:02 147/101 06/06/19 12:00 Room Air 06/06/19 12:00 98.7 103 21 147/101 (116) 98 06/06/19 11:44 104 Intake and Output 06/06/19 06/07/19 19:00 07:00 Intake Total 900 ml 150 ml Output Total 1400 ml 800 ml Balance -500 ml -650 ml Intake Oral 150 ml IV Total 900 ml Output Urine Total 1400 ml 800 ml # Bowel Movements 1 1 Laboratory Tests Test 06/07/19 03:00 White Blood Count 7.4 K/UL (4.8-10.8) Red Blood Count 4.42 M/UL (4.70-6.10) L Hemoglobin 14.2 G/DL (14.2-18.0) Hematocrit 42.9 % (42.0-52.0) Mean Corpuscular Volume 97 FL (80-99) Mean Corpuscular Hemoglobin 32.2 PG (27.0-31.0) H Mean Corpuscular Hemoglobin Concent 33.2 G/DL (32.0-36.0) Red Cell Distribution Width 13.2 % (11.6-14.8) Platelet Count 270 K/UL (150-450) Mean Platelet Volume 5.4 FL (6.5-10.1) L Neutrophils (%) (Auto) 64.1 % (45.0-75.0) Lymphocytes (%) (Auto) 23.1 % (20.0-45.0) Monocytes (%) (Auto) 9.0 % (1.0-10.0) Eosinophils (%) (Auto) 2.7 % (0.0-3.0) Basophils (%) (Auto) 1.1 % (0.0-2.0) Sodium Level 136 MMOL/L (136-145) Potassium Level 3.9 MMOL/L (3.5-5.1) Chloride Level 98 MMOL/L (98-107) Carbon Dioxide Level 28 MMOL/L (21-32) Anion Gap 10 mmol/L (5-15) Blood Urea Nitrogen 21 mg/dL (7-18) H Creatinine 1.4 MG/DL (0.55-1.30) H Estimat Glomerular Filtration Rate > 60 mL/min (>60) Glucose Level 153 MG/DL (74-106) H Calcium Level 9.3 MG/DL (8.5-10.1) Phosphorus Level 2.0 MG/DL (2.5-4.9) L Magnesium Level 1.5 MG/DL (1.8-2.4) L Amylase Level 103 U/L (25-115) Lipase 865 U/L (73-393) H Ronald Blanchard MD Jun 07, 2019 09:19
[2019-06-07] MEDS ORDERED: Potassium Phosphate 20 MM in NS 275 ML IV SCH (10:00)
--- NOTE | 2019-06-07 10:35 | NUR ---
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 Per EMS, drinks vodka daily basis, PT not complaint with his meds SI: Alcohol Withdrawal VS: BP: 165/112 HR: 132 RR 20 02 Sat 99% (RA) T: 98.3 NT: RBC 4.4 Hct 40.6 UR Erythrocyte 1+ UR Protein 3+ UR Ketones 3+ UR RBC 0-2 Anion Gap 23 BUN 39 Glucose Random 117 Magnesium 1.2 Bilirubin 2.5 Total protein 8.9 Lipase >2000 NT-proBNP 788 Lactic Acid 3.2 Lactic Acid 2.6 CXR: Incidental right pulmonary nodule. Suggest follow-up examination in one year IS: 1 nitor spray (EMS) 162mg ASA (EMS) Thiamine 100mg oral Folic Acid 1mg oral Ativan 2mg IV NS 1000ml IV Aspirin 162mg Oral Apresoline 20mg IV Valium 5mg Oral Admitted to [facility] Telemetry status DCP: Pending Hospital Stay
--- NOTE | 2019-06-07 11:15 | GI Progress Note ---
Assessment/Plan Problems: (1) Alcoholic pancreatitis ICD Codes: K85.20 - Alcohol induced acute pancreatitis without necrosis or infection SNOMED: 211460858 (2) Amphetamine abuse ICD Codes: F15.10 - Other stimulant abuse, uncomplicated SNOMED: 36895312 (3) Cocaine abuse ICD Codes: F14.10 - Cocaine abuse, uncomplicated SNOMED: 17202185 (4) Polysubstance abuse ICD Codes: F19.10 - Other psychoactive substance abuse, uncomplicated SNOMED: 820285524 (5) Elevated lipase ICD Codes: R74.8 - Abnormal levels of other serum enzymes SNOMED: 169546007 (6) Alcohol withdrawal ICD Codes: F10.239 - Alcohol dependence with withdrawal, unspecified SNOMED: 111243460 (7) Cocaine abuse ICD Codes: F14.10 - Cocaine abuse SNOMED: 55097367 Status: unchanged Status Narrative Discussed with Dr. Le. Assessment/Plan (1) Alcoholic pancreatitis (2) Polysubstance abuse (3) Elevated lipase (4) Alcohol withdrawal (5) Amphetamine abuse (6) Cocaine abuse Plan US reviewed, fatty liver. adv diet Electrolyte correction Pain management PPI Zofran as needed Trend lipase outpatient GI procedures The patient was seen and examined at bedside and all new and available data was reviewed in the patients chart. I agree with the above findings, impression and plan. (Patient seen earlier today. Signature stamp does not reflect patient encounter time.). - Felice Le MD Subjective Gastrointestinal/Abdominal: Reports: no symptoms Objective Last 24 Hour Vital Signs Date Time Temp Pulse Resp B/P (MAP) Pulse Ox O2 Delivery O2 Flow Rate FiO2 06/07/19 09:00 87 114/72 06/07/19 09:00 87 114/72 06/07/19 08:00 87 06/07/19 08:00 Room Air 06/07/19 08:00 97.2 69 20 114/72 (86) 100 06/07/19 05:29 162/109 06/07/19 04:00 Room Air 06/07/19 04:00 92 06/07/19 04:00 98.0 106 20 163/109 (127) 99 06/07/19 00:00 97.9 105 20 161/112 (128) 99 06/07/19 00:00 Room Air 06/07/19 00:00 86 06/06/19 21:05 147/109 06/06/19 20:41 105 151/109 06/06/19 20:00 Room Air 06/06/19 20:00 98.0 104 20 151/112 (125) 99 06/06/19 19:03 95 06/06/19 19:03 95 06/06/19 16:00 Room Air 06/06/19 16:00 98.9 108 20 132/84 (100) 98 06/06/19 15:09 131 06/06/19 15:02 147/101 06/06/19 12:00 Room Air 06/06/19 12:00 98.7 103 21 147/101 (116) 98 06/06/19 11:44 104 Intake and Output 06/06/19 06/07/19 19:00 07:00 Intake Total 900 ml 150 ml Output Total 1400 ml 800 ml Balance -500 ml -650 ml Intake Oral 150 ml IV Total 900 ml Output Urine Total 1400 ml 800 ml # Bowel Movements 1 1 Laboratory Tests Test 06/07/19 03:00 White Blood Count 7.4 K/UL (4.8-10.8) Red Blood Count 4.42 M/UL (4.70-6.10) L Hemoglobin 14.2 G/DL (14.2-18.0) Hematocrit 42.9 % (42.0-52.0) Mean Corpuscular Volume 97 FL (80-99) Mean Corpuscular Hemoglobin 32.2 PG (27.0-31.0) H Mean Corpuscular Hemoglobin Concent 33.2 G/DL (32.0-36.0) Red Cell Distribution Width 13.2 % (11.6-14.8) Platelet Count 270 K/UL (150-450) Mean Platelet Volume 5.4 FL (6.5-10.1) L Neutrophils (%) (Auto) 64.1 % (45.0-75.0) Lymphocytes (%) (Auto) 23.1 % (20.0-45.0) Monocytes (%) (Auto) 9.0 % (1.0-10.0) Eosinophils (%) (Auto) 2.7 % (0.0-3.0) Basophils (%) (Auto) 1.1 % (0.0-2.0) Sodium Level 136 MMOL/L (136-145) Potassium Level 3.9 MMOL/L (3.5-5.1) Chloride Level 98 MMOL/L (98-107) Carbon Dioxide Level 28 MMOL/L (21-32) Anion Gap 10 mmol/L (5-15) Blood Urea Nitrogen 21 mg/dL (7-18) H Creatinine 1.4 MG/DL (0.55-1.30) H Estimat Glomerular Filtration Rate > 60 mL/min (>60) Glucose Level 153 MG/DL (74-106) H Calcium Level 9.3 MG/DL (8.5-10.1) Phosphorus Level 2.0 MG/DL (2.5-4.9) L Magnesium Level 1.5 MG/DL (1.8-2.4) L Amylase Level 103 U/L (25-115) Lipase 865 U/L (73-393) H Height (Feet): 6 Height (Inches): 1.00 Weight (Pounds): 190 General Appearance: WD/WN, no apparent distress, alert Cardiovascular: normal rate Respiratory/Chest: normal breath sounds, no respiratory distress Abdominal Exam: normal bowel sounds, non tender, soft Extremities: normal range of motion, non-tender Catia Roberts NP Jun 07, 2019 11:15
[2019-06-07] MEDS ORDERED: Nitroglycerin Subl 0.4mg tab SL PRN (18:00)
--- NOTE | 2019-06-07 18:15 | NUR ---
NURSE NOTES: Patient transferred to unit from SDU. Received report from Shireen Merchant RN. Patient is awake and oriented, no acute distress noted. Patient belongings accounted for. Fall and seizure precautions maintained, side rails padded x2, side rails upx3, bed low and locked, call light in reach, patient updated on plan of care. Will continue to monitor.
--- NOTE | 2019-06-07 18:22 | NUR ---
TRANSFER TO FLOOR: Patient transferred to [address] [place] [address], [address] Sultana. Report given to CLAY Ferrell. Belongings given to CLAY Ferrell.
[2019-06-07] MEDS ORDERED: cloNIDine 0.2mg Tab ORAL PRN (19:00)
--- NOTE | 2019-06-07 19:30 | NUR ---
HAND-OFF: Report given to Kaylan WILLIAMSON. Patient is in stable condition.
[2019-06-07] MEDS ORDERED: LORazepam Inj 2mg/ml 1ml IV PRN (19:45)
--- NOTE | 2019-06-07 20:00 | NUR ---
NURSE NOTES: IV access infiltrated, will insert new one.
[2019-06-07] MEDS: Carvedilol 12.5mg tab ORAL SCH (20:57)
[2019-06-08] VITALS: BP 147/84
[2019-06-08 04:08] VITALS: BP 135/80
[2019-06-08] MEDS: HydrALAZINE 50mg tab ORAL SCH (05:29)
--- NOTE | 2019-06-08 05:33 | NUR ---
NURSE NOTES: Patient refused IV insertion. Dr Sultana aware.
[2019-06-08 06:02] LABS: BASOPHILS % (AUTO) 1.3 % (0.0-2.0); EOSINOPHILS % (AUTO) 2.9 % (0.0-3.0); HEMATOCRIT 39.6 % (42.0-52.0); LYMPHOCYTES % (AUTO) 24.1 % (20.0-45.0); MEAN CORPUSCULAR VOLUME 97 FL (80-99); MONOCYTES % (AUTO) 9.4 % (1.0-10.0); NEUTROPHILS % (AUTO) 62.2 % (45.0-75.0); PLATELET COUNT 239 K/UL (150-450); RED BLOOD COUNT 4.09 M/UL (4.70-6.10); RED CELL DISTRIBUTION WIDTH 12.7 % (11.6-14.8); WHITE BLOOD COUNT 7.8 K/UL (4.8-10.8)
[2019-06-08 06:22] LABS: ANION GAP 8 mmol/L (5-15); BLOOD UREA NITROGEN 19 mg/dL (7-18); CALCIUM 8.8 MG/DL (8.5-10.1); CARBON DIOXIDE 29 MMOL/L (21-32); CHLORIDE 98 MMOL/L (98-107); CREATININE 1.3 MG/DL (0.55-1.30); POTASSIUM 3.4 MMOL/L (3.5-5.1); SODIUM 135 MMOL/L (136-145)
--- NOTE | 2019-06-08 07:30 | NUR ---
HAND-OFF: Report given to CLAY Mattson.
--- NOTE | 2019-06-08 07:40 | NUR ---
NURSE NOTES: Received report from CLAY Enciso. Pt a/o x4, in bed. No respiratory discomfort noted. Denies any pain at this time. No IV access. MD is aware. Bed in lowest position, call light within reach. Will continue to monitor.
[2019-06-08 08:00] VITALS: BP 107/77
[2019-06-08] MEDS ORDERED: Thiamine 100mg tab ORAL SCH (09:00)
[2019-06-08] MEDS ORDERED: Aspirin Baby 81mg ORAL SCH (09:00)
[2019-06-08] MEDS: Carvedilol 12.5mg tab ORAL SCH (09:01)
--- NOTE | 2019-06-08 09:56 | GI Progress Note ---
Assessment/Plan Problems: (1) Alcoholic pancreatitis ICD Codes: K85.20 - Alcohol induced acute pancreatitis without necrosis or infection SNOMED: 038397176 (2) Amphetamine abuse ICD Codes: F15.10 - Other stimulant abuse, uncomplicated SNOMED: 52193509 (3) Cocaine abuse ICD Codes: F14.10 - Cocaine abuse, uncomplicated SNOMED: 60093921 (4) Polysubstance abuse ICD Codes: F19.10 - Other psychoactive substance abuse, uncomplicated SNOMED: 384425028 (5) Elevated lipase ICD Codes: R74.8 - Abnormal levels of other serum enzymes SNOMED: 027806728 (6) Alcohol withdrawal ICD Codes: F10.239 - Alcohol dependence with withdrawal, unspecified SNOMED: 230949226 (7) Cocaine abuse ICD Codes: F14.10 - Cocaine abuse SNOMED: 63364190 Status: stable Status Narrative Discussed with Dr. Le. Assessment/Plan Plan US reviewed, fatty liver. adv diet Electrolyte correction Pain management PPI Zofran as needed Trend lipase outpatient GI procedures The patient was seen and examined at bedside and all new and available data was reviewed in the patients chart. I agree with the above findings, impression and plan. (Patient seen earlier today. Signature stamp does not reflect patient encounter time.). - Felice Le MD Subjective Gastrointestinal/Abdominal: Reports: no symptoms Objective Last 24 Hour Vital Signs Date Time Temp Pulse Resp B/P (MAP) Pulse Ox O2 Delivery O2 Flow Rate FiO2 06/08/19 09:01 102 107/77 06/08/19 09:01 102 107/77 06/08/19 08:00 98.9 102 18 107/77 (87) 99 06/08/19 05:29 135/80 06/08/19 04:08 97.7 98 18 135/80 (98) 99 06/08/19 00:00 97.0 101 18 147/84 (105) 99 06/07/19 22:59 Room Air 06/07/19 21:38 156/107 06/07/19 20:57 103 156/107 06/07/19 20:00 97.3 97 18 158/95 (116) 99 06/07/19 17:47 156/107 (123) 06/07/19 16:00 Room Air 06/07/19 16:00 98.2 103 20 163/105 (124) 99 06/07/19 15:20 150/107 06/07/19 15:11 91 06/07/19 12:00 101 06/07/19 12:00 97.2 103 20 146/111 (123) 99 06/07/19 12:00 Room Air Intake and Output 06/07/19 06/08/19 19:00 07:00 Intake Total 716.664 ml Output Total 565 ml Balance 151.664 ml Intake Oral 270 ml IV Total 446.664 ml Output Urine Total 565 ml # Voids 3 1 Laboratory Tests Test 06/08/19 05:30 White Blood Count 7.8 K/UL (4.8-10.8) Red Blood Count 4.09 M/UL (4.70-6.10) L Hemoglobin 13.0 G/DL (14.2-18.0) L Hematocrit 39.6 % (42.0-52.0) L Mean Corpuscular Volume 97 FL (80-99) Mean Corpuscular Hemoglobin 31.9 PG (27.0-31.0) H Mean Corpuscular Hemoglobin Concent 32.9 G/DL (32.0-36.0) Red Cell Distribution Width 12.7 % (11.6-14.8) Platelet Count 239 K/UL (150-450) Mean Platelet Volume 5.6 FL (6.5-10.1) L Neutrophils (%) (Auto) 62.2 % (45.0-75.0) Lymphocytes (%) (Auto) 24.1 % (20.0-45.0) Monocytes (%) (Auto) 9.4 % (1.0-10.0) Eosinophils (%) (Auto) 2.9 % (0.0-3.0) Basophils (%) (Auto) 1.3 % (0.0-2.0) Sodium Level 135 MMOL/L (136-145) L Potassium Level 3.4 MMOL/L (3.5-5.1) L Chloride Level 98 MMOL/L (98-107) Carbon Dioxide Level 29 MMOL/L (21-32) Anion Gap 8 mmol/L (5-15) Blood Urea Nitrogen 19 mg/dL (7-18) H Creatinine 1.3 MG/DL (0.55-1.30) Estimat Glomerular Filtration Rate > 60 mL/min (>60) Glucose Level 143 MG/DL (74-106) H Calcium Level 8.8 MG/DL (8.5-10.1) Height (Feet): 6 Height (Inches): 1.00 Weight (Pounds): 191 General Appearance: WD/WN, no apparent distress, alert Cardiovascular: normal rate Respiratory/Chest: normal breath sounds, no respiratory distress Abdominal Exam: normal bowel sounds, non tender, soft Extremities: normal range of motion, non-tender Catia Roberts NP Jun 08, 2019 09:56
[2019-06-08] MEDS ORDERED: Sodium Phosphate 30 MM in NS 275 ML IVPB SCH (10:00)
--- NOTE | 2019-06-08 10:10 | NUR ---
NURSE NOTES: Dr. Sultana came and said that pt will be d/c home today. Mentioned to MD that T[employer]ENT PROGRAM MANAGER Cipriano ordered magnesium, sodium phosphate IVPB. MD said it was given yesterday so no need today. Noted and carried out.
--- NOTE | 2019-06-08 10:16 | Cardiology Progress Note ---
Assessment/Plan Status: stable Assessment/Plan Assessment/Plan Assessment/Plan 1. Chest pain. Troponin is negative. EKG has inferior ischemia. This is likely the effect of cocaine and polysubstance abuse. Urine tox is negative now Echocardiogram pending Stress test prior to discharge 2. HTN. Controlled On Norvasc 10 mg daily, hydralazine 50 q 8 and Coreg 3.125 bid 3. History of heavy alcohol use. On thiamine and folate. 4. History of cocaine and meth use. 5. Pancreatitis. Lipase is more than 2000. Further evaluation by GI. Subjective Cardiovascular: Reports: no symptoms Respiratory: Reports: no symptoms Gastrointestinal/Abdominal: Reports: no symptoms Genitourinary: Reports: no symptoms Subjective Coverage for [place] No acute events Objective Last 24 Hour Vital Signs Date Time Temp Pulse Resp B/P (MAP) Pulse Ox O2 Delivery O2 Flow Rate FiO2 06/08/19 09:01 102 107/77 06/08/19 09:01 102 107/77 06/08/19 08:00 98.9 102 18 107/77 (87) 99 06/08/19 05:29 135/80 06/08/19 04:08 97.7 98 18 135/80 (98) 99 06/08/19 00:00 97.0 101 18 147/84 (105) 99 06/07/19 22:59 Room Air 06/07/19 21:38 156/107 06/07/19 20:57 103 156/107 06/07/19 20:00 97.3 97 18 158/95 (116) 99 06/07/19 17:47 156/107 (123) 06/07/19 16:00 Room Air 06/07/19 16:00 98.2 103 20 163/105 (124) 99 06/07/19 15:20 150/107 06/07/19 15:11 91 06/07/19 12:00 101 06/07/19 12:00 97.2 103 20 146/111 (123) 99 06/07/19 12:00 Room Air General Appearance: no apparent distress, alert EENT: PERRL/EOMI, normal ENT inspection, TMs normal, pharynx normal Neck: non-tender, normal alignment, supple, normal inspection, no JVD Rhythm: NSR Cardiovascular: normal rate, regular rhythm Respiratory/Chest: lungs clear, normal breath sounds Abdomen: non tender, soft, no mass Extremities: non-tender, normal inspection, no calf tenderness Neurologic: svp digital sales II-XII grossly normal, no motor/sensory deficits Intake and Output 06/07/19 06/08/19 19:00 07:00 Intake Total 716.664 ml Output Total 565 ml Balance 151.664 ml Intake Oral 270 ml IV Total 446.664 ml Output Urine Total 565 ml # Voids 3 1 Laboratory Tests Test 06/08/19 05:30 White Blood Count 7.8 K/UL (4.8-10.8) Red Blood Count 4.09 M/UL (4.70-6.10) L Hemoglobin 13.0 G/DL (14.2-18.0) L Hematocrit 39.6 % (42.0-52.0) L Mean Corpuscular Volume 97 FL (80-99) Mean Corpuscular Hemoglobin 31.9 PG (27.0-31.0) H Mean Corpuscular Hemoglobin Concent 32.9 G/DL (32.0-36.0) Red Cell Distribution Width 12.7 % (11.6-14.8) Platelet Count 239 K/UL (150-450) Mean Platelet Volume 5.6 FL (6.5-10.1) L Neutrophils (%) (Auto) 62.2 % (45.0-75.0) Lymphocytes (%) (Auto) 24.1 % (20.0-45.0) Monocytes (%) (Auto) 9.4 % (1.0-10.0) Eosinophils (%) (Auto) 2.9 % (0.0-3.0) Basophils (%) (Auto) 1.3 % (0.0-2.0) Sodium Level 135 MMOL/L (136-145) L Potassium Level 3.4 MMOL/L (3.5-5.1) L Chloride Level 98 MMOL/L (98-107) Carbon Dioxide Level 29 MMOL/L (21-32) Anion Gap 8 mmol/L (5-15) Blood Urea Nitrogen 19 mg/dL (7-18) H Creatinine 1.3 MG/DL (0.55-1.30) Estimat Glomerular Filtration Rate > 60 mL/min (>60) Glucose Level 143 MG/DL (74-106) H Calcium Level 8.8 MG/DL (8.5-10.1) Ronald Blanchard MD Jun 08, 2019 10:16
--- NOTE | 2019-06-08 10:22 | Nephrology Progress Note ---
Assessment/Plan Status: stable Assessment/Plan: A/P 1) HTN Urgency- resolved. 2) Abd Pain- pancreatitis- Lipase 3000---->850 - cleared by GI . Avoid alcohol 3) ACS/Chest Pain- appreciate cardiology input - cleared with out patient stress test 4) DVT prophylaxsis- SCDs 5) E-ABN- replace K+/Phos and Mg prn Thiamine and folate Subjective Date patient seen: Jun 08, 2019 Time patient seen: 10:17 ROS Limited/Unobtainable: No Allergies: Coded Allergies: No Known Allergies (Unverified , 09/25/14) Subjective Patient much improved. Back to baseline Objective Last 24 Hour Vital Signs Date Time Temp Pulse Resp B/P (MAP) Pulse Ox O2 Delivery O2 Flow Rate FiO2 06/08/19 09:01 102 107/77 06/08/19 09:01 102 107/77 06/08/19 08:00 98.9 102 18 107/77 (87) 99 06/08/19 05:29 135/80 06/08/19 04:08 97.7 98 18 135/80 (98) 99 06/08/19 00:00 97.0 101 18 147/84 (105) 99 06/07/19 22:59 Room Air 06/07/19 21:38 156/107 06/07/19 20:57 103 156/107 06/07/19 20:00 97.3 97 18 158/95 (116) 99 06/07/19 17:47 156/107 (123) 06/07/19 16:00 Room Air 06/07/19 16:00 98.2 103 20 163/105 (124) 99 06/07/19 15:20 150/107 06/07/19 15:11 91 06/07/19 12:00 101 06/07/19 12:00 97.2 103 20 146/111 (123) 99 06/07/19 12:00 Room Air Intake and Output 06/07/19 06/08/19 19:00 07:00 Intake Total 716.664 ml Output Total 565 ml Balance 151.664 ml Intake Oral 270 ml IV Total 446.664 ml Output Urine Total 565 ml # Voids 3 1 Laboratory Tests 06/08/19 05:30: White Blood Count 7.8, Red Blood Count 4.09L, Hemoglobin 13.0L, Hematocrit 39.6L , Mean Corpuscular Volume 97, Mean Corpuscular Hemoglobin 31.9H, Mean Corpuscular Hemoglobin Concent 32.9, Red Cell Distribution Width 12.7, Platelet Count 239, Mean Platelet Volume 5.6L, Neutrophils (%) (Auto) 62.2, Lymphocytes ( %) (Auto) 24.1, Monocytes (%) (Auto) 9.4, Eosinophils (%) (Auto) 2.9, Basophils (%) (Auto) 1.3, Sodium Level 135L, Potassium Level 3.4L, Chloride Level 98, Carbon Dioxide Level 29, Anion Gap 8, Blood Urea Nitrogen 19H, Creatinine 1.3, Estimat Glomerular Filtration Rate > 60, Glucose Level 143H, Calcium Level 8.8 Height (Feet): 6 Height (Inches): 1.00 Weight (Pounds): 191 General Appearance: no apparent distress, alert EENT: normal ENT inspection Neck: normal alignment, supple Cardiovascular: normal rate, regular rhythm Respiratory/Chest: lungs clear, normal breath sounds Abdomen: non tender, soft Edema: no edema noted Arm (L), no edema noted Arm (R), no edema noted Leg (L), no edema noted Leg (R), no edema noted Pedal (L), no edema noted Pedal (R), no edema noted Generalized Bry Sultana MD Jun 08, 2019 10:22
--- NOTE | 2019-06-08 10:25 | Discharge Instructions ---
Discharge Instructions Discharge Instructions Services at Discharge: day care Diet: 2 GM sodium (low sodium) Resume Normal Activity?: Yes Activity: light activity Follow Up Orders F/U PCP 1 week For Congestive Heart Failure Reminder Report to your physician any weight gain of 5 pounds or more in one week. Bry Sultana MD Jun 08, 2019 10:25
--- NOTE | 2019-06-08 10:27 | Discharge Instructions ---
Discharge Instructions Discharge Instructions Follow Up Orders PCP 1 week and will need out patient stress test For Congestive Heart Failure Reminder Report to your physician any weight gain of 5 pounds or more in one week. Bry Sultana MD Jun 08, 2019 10:27
[2019-06-08 12:00] VITALS: BP 151/93
[2019-06-08] MEDS ORDERED: Tubing IV Secondary IV ONE (12:54)
[2019-06-08] MEDS ORDERED: D5NS 1000ml IV ONE (12:54)
--- NOTE | 2019-06-08 12:55 | NUR ---
NURSE NOTES: Discharge instruction was given. Belongings checked with pt and given to pt. Taxi voucher was provided. Pt discharged in stable condition.
--- NOTE | 2019-06-09 13:02 | Discharge Summary ---
Discharge Summary Discharge Summary _ DATE OF ADMISSION: 06/05/2019 DATE OF DISCHARGE: 06/08/2019 DISCHARGED BY: Dr. Sultana REASON FOR ADMISSION: 59 years old male with past medical history of seizure disorder, polysubstance abuse, coronary artery disease, congestive heart failure, ETOH abuse, presented to emergency department for evaluation. Patient is a history of polysubstance abuse, including cocaine, amphetamine, chronic alcohol /1 gallon of vodka daily. Patient reported sharp stabbing left-sided chest pain without radiation and not associated with shortness of breath. No change in intensity with exertion or with rest. He noted diaphoresis and tachycardia. He normally drinks 1 gallon of vodka daily , but did not drink any alcohol at that day. Patient reported alcoholic withdrawal seizure in the past. Patient reported not being on antihypertensive medication for 1 week. Patient had angiogram done 3 weeks ago at [facility] [place]. Patient reported that he had a stent. He denied fever and chills . No abdominal pain , no diarrhea . Upon evaluation patient was tachycardic with heart rate 116 , blood pressure 165 /109, pulse oximetry was stable on room air. Laboratory work-up revealed no leukocytosis , stable hemoglobin and hematocrit. Stable electrolytes. BUN 37, creatinine 1.7. Lactic acid 3.2 . Total bilirubin 2.5 , direct bilirubin 0.4. Stable AST and ALT. Troponin 0.012. Pro BNP 788. EKG reveals sinus tachycardia with prolonged QT interval. Lipase over 2000. Serum alcohol level 7 0 , serum salicylates and Tylenol negative. Urine toxicology screen was negative. Urinalysis revealed +3 protein, no evidence of UTI. Chest x-ray demonstrated no acute cardiopulmonary pathology. Incidental right pulmonary nodule noted. Patient subsequently admitted to telemetry floor for further management CONSULTANTS: training assistant Dr. Montaño GI specialist Dr. Le [facility] COURSE: Patient admitted to telemetry floor. Serial troponin were negative. Yarn Tester followed. Serial troponin were negative. EKG revealed evidence of inferior ischemia. Per training assistant, likely the effect of cocaine and polysubstance abuse. Blood pressure was stable on calcium channel jennifer , hydralazine and beta- jennifer. Pain management was addressed. GI prophylaxis provided. DVT prophylaxis with SCD provided. Patient started on thiamine and folic acid. Patient was aggressively hydrated. Patient initially started on clear liquid diet. Lipase was trended. GI specialist followed. Ultrasound of the abdomen demonstrated fatty liver. Lipase trended down to 865. Diet was advanced as tolerated. Antiemetic were on board as needed.: Electrolytes potassium , magnesium, phosphorus, were all corrected. GI recommended outpatient GI procedure. Patient was counseled on abstinence from alcohol and illicit street drugs. Patient was stable for discharge FINAL DIAGNOSES: Alcohol withdrawal Hypertensive urgency Alcoholic pancreatitis Polysubstance abuse DISCHARGE MEDICATIONS: See Medication Reconciliation list. DISCHARGE INSTRUCTIONS: Patient was discharged home . Follow up with primary care provider in one week. I have been assigned to dictate discharge summary for this account. I was not involved in the patient's management. Sofia Hwang NP Jun 09, 2019 13:02
--- NOTE | 2019-06-11 11:06 | NUR ---
CASE MANAGEMENT: CM review and clinical information (face sheet/ ER MD notes/ H&P/DC summary) faxed to [facility] @ [phone] and [facility] Dept @ [phone].
== END 2019-06-08 12:55 | disposition home or self-care (01) | DRG 774 ==
LOC: EDBD 14:38 → EMR 16:00 → 2W 16:56 → EDBEDREQ 17:39 → 2W 18:30 → 3E 06-07 17:54
DX: F10.239 Alcohol dependence with withdrawal, unspecified (principal); F14.188 Cocaine abuse with other cocaine-induced disorder; I24.9 Acute ischemic heart disease, unspecified; I16.0 Hypertensive urgency; K85.20 Alcohol induced acute pancreatitis without necrosis or infection; F15.10 Other stimulant abuse, uncomplicated; F19.10 Other psychoactive substance abuse, uncomplicated; E86.0 Dehydration; K76.0 Fatty (change of) liver, not elsewhere classified; I25.10 Atherosclerotic heart disease of native coronary artery without angina pectoris; I11.0 Hypertensive heart disease with heart failure
CPT/HCPCS: 36415; 71045; 76700; 80048; 80053; 80061; 80307; 80329; 81003; 82150; 82248; 82550; 82553; 83605; 83690; 83735; 83880; 84100; 84484; 85025; 85610; 85730; 86850; 86900; 86901; 93005; 93306; 96361; 96374; 96375; 99285; J8499